=== PATIENT | female | born 1950 | race African-American/Black ===

== ENCOUNTER 2016-11-25 14:42 | Inpatient (IN) | payer OTHER ==
[2016-11-25] MEDS ORDERED: SODIUM CHLORIDE 1,000 ML IV ONE (15:19)
[2016-11-25 15:29] LABS: BASOPHIL 0.6 % (0-2.0); EOSINOPHIL 0.2 % (0-4.5); MCH 22.4 pg (25.7-33.7); MCHC 31.8 g/dl (32.0-36.0); MEAN CELL VOLUME 70.3 fl (80-96); MEAN PLT VOLUME 9.4 fl (7.5-11.1); NEUTROPHILS 61.9 % (42.8-82.8); PLATELET COUNT 337 K/MM3 (134-434); RDW 14.5 % (11.6-15.6); WHITE BLOOD COUNT 8.5 K/mm3 (4.0-10.0)
--- NOTE | 2016-11-25 15:30 | PDOC ---
History of Present Illness - General Chief Complaint: Blood Sugar Problem Stated Complaint: BLOOD SUGAR PROBLEM Time Seen by Provider: 11/25/16 14:56 Past History - Past History Allergies/Adverse Reactions: Allergies No Known Allergies Allergy (Verified 11/25/16 14:57) Home Medications: Ambulatory Orders Metformin HCl 500 mg PO DAILY #14 tablet 03/30/16 Nitrofurantoin Monohyd/M-Cryst [Macrobid] 100 mg PO BID #14 capsule 03/30/16 - Social History Smoking Status: Never smoked *Physical Exam - Vital Signs Last Vital Signs Temp Pulse Resp BP Pulse Ox 97.9 F 110 H 18 152/87 99 11/25/16 14:56 11/25/16 14:56 11/25/16 14:56 11/25/16 14:56 11/25/16 14:56 ED Treatment Course - LABORATORY CBC & Chemistry Diagram: 11/25/16 15:00 11/25/16 15:00 - RADIOLOGY Radiology Studies Ordered: Category Date Time Status CHEST X-RAY PORTABLE* [RAD] Stat Radiology 11/25/16 15:01 Taken Medical Decision Making - Medical Decision Making 11/25/16 15:30 66y F hx of NIDDM
--- NOTE | 2016-11-25 15:31 | PDOC ---
History of Present Illness - General History Source: Patient, Family Exam Limitations: Language Barrier - History of Present Illness Initial Comments: 11/25/16 18:05 The patient is a 66 year old female, with a significant past medical history of diabetes, who presents to the emergency department complaining of weakness for approximately 5 days. As per son the patient has not checked her blood sugar since late September. Yesterday when his checked the patients sugar, her blood sugar was 431. She currently feels as if her mouth were sweet and her throat is burning". Son reports increased urinary frequency, but denies urgency , hematuria, or dysuria. The patient is currently complaining of abdominal discomfort, which she describes as an emptiness in her stomach. She reports she has decreased appetite and her last meal was a banana for breakfast. She reports 1 emetic episode earlier, but denies diarrhea or constipation. The patient denies any chest pain, shortness of breath, diaphoresis, or palpitations. The patient reports headache several days ago, but denies any fever, chills, cough, or dizziness. Patient denies any recent travel or sick contacts. Allergies: None reported. Past Surgical History: None reported. Social History: Non-smoker. Denies alcohol or drug use. <Yann Ureña - Last Filed: 11/25/16 18:58> - General History Source: Patient Exam Limitations: No Limitations <Prem Colón - Last Filed: 11/26/16 09:40> - General Chief Complaint: Blood Sugar Problem Stated Complaint: BLOOD SUGAR PROBLEM Time Seen by Provider: 11/25/16 14:56 Past History <Yann Ureña - Last Filed: 11/25/16 18:58> - Past Medical History Cardiac Disorders: Yes Diabetes: Yes HTN: Yes - Psycho/Social/Smoking Cessation Hx Anxiety: No Suicidal Ideation: No Smoking History: Never smoked Information on smoking cessation initiated: No Hx Alcohol Use: No Drug/Substance Use Hx: No Substance Use Type: None <Prem Colón - Last Filed: 11/26/16 09:40> - Past Medical History Allergies/Adverse Reactions: Allergies Allergy/AdvReac Type Severity Reaction Status Date / Time No Known Allergies Allergy Verified 11/25/16 14:57 Home Medications: Ambulatory Orders Metformin HCl 500 mg PO DAILY #14 tablet 03/30/16 Review of Systems - Review of Systems Able to Perform ROS?: Yes Comments:: 11/25/16 18:06 CONSTITUTIONAL: +Loss of Appetite, +Generalized Weakness. No reported: Fever, Chills, Diaphoresis, Malaise HEENT: +Burning sensation in throat. No reported: Rhinorrhea, Nasal Congestion, Throat Swelling, Difficulty Swallowing, Mouth Swelling, Ear Pain, Eye Pain, Visual Changes CARDIOVASCULAR: No reported: Chest Pain, Syncope, Palpitations, Irregular Heart Rate, Lightheadedness, Peripheral Edema RESPIRATORY: No reported: Cough, Shortness of Breath, SOB with Exertion, Orthopnea, Wheezing , Stridor, Hemoptysis GASTROINTESTINAL: +Abdominal discomfort, +Vomiting. No reported: Abdominal Distension, Diarrhea, Constipation, Melena, Hematochezia GENITOURINARY: +Frequency. No reported: Dysuria, Urgency, Hesitancy, Flank Pain, Genital Pain MUSCULOSKELETAL: No reported: Myalgia, Arthralgia, Joint Swelling, Back pain, Neck Pain SKIN: No reported: Rash, Itching, Pallor HEMEATOLOGIC/IMMUNOLOGIC: No reported: Easy Bleeding, Easy Bruising, Lymphadenopathy, Frequent infections ENDOCRINE: No reported: Unexplained Weight Gain, Unexplained Weight Loss, Heat Intolerance , Cold Intolerance NEUROLOGIC: +Headache. No reported: Focal Weakness, Paresthesias, Vertigo, Lightheadedness, Unsteady Gait, Seizure, Mental Status Changes, Incontinence PSYCHIATRIC: No reported: Anxiety, Depression <Ureña,Giomilsy - Last Filed: 11/25/16 18:58> *Physical Exam - Vital Signs Last Vital Signs Temp Pulse Resp BP Pulse Ox 97.9 F 110 H 18 152/87 99 11/25/16 14:56 11/25/16 14:56 11/25/16 14:56 11/25/16 14:56 11/25/16 14:56 - Physical Exam Comments: 11/25/16 18:06 GENERAL: +Obese. The patient is awake, alert, and fully oriented, Nontoxic - in no acute distress. HEAD: Normocephalic, atraumatic. EYES: extraocular movements intact, sclera anicteric, conjunctiva clear. ENT: +Mildly dry mucous membranes. Normal voice. NECK: Normal range of motion, supple LUNGS: Breath sounds equal, clear to auscultation bilaterally. No wheezes, no rhonchi, no rales. HEART: Regular rate and rhythm, without murmur, rub or gallop. ABDOMEN: Soft, nontender, normoactive bowel sounds. No guarding, no rebound.No CVA tenderness EXTREMITIES: Normal range of motion, no edema. No clubbing or cyanosis. No cords, erythema, or tenderness. NEUROLOGICAL: No facial asymmetry, Normal speech. PSYCH: Normal mood, normal affect. SKIN: Warm, Dry, normal turgor. <Yann Ureña - Last Filed: 11/25/16 18:58> - Vital Signs Last Vital Signs Temp Pulse Resp BP Pulse Ox 97.9 F 110 H 18 152/87 99 11/25/16 14:56 11/25/16 14:56 11/25/16 14:56 11/25/16 14:56 11/25/16 14:56 <Prem Colón - Last Filed: 11/26/16 09:40> Heart Score/ECG Review - ECG Impressions Comment:: 11/25/16 15:31 Twelve-lead EKG was performed and reviewed by me. There is normal sinus rhythm with a rate of 107 The axis is normal. The intervals are normal. There is normal R wave progression There are no ST or T wave abnormalities. Impression: sinus tachycardia <Prem Colón - Last Filed: 11/26/16 09:40> ED Treatment Course - LABORATORY CBC & Chemistry Diagram: 11/25/16 15:00 11/25/16 16:26 - ADDITIONAL ORDERS Additional order review: Laboratory Results 11/25/16 11/25/16 15:27 15:00 VBG pH 7.23 L* POC VBG pCO2 21.1 L POC VBG pO2 67.1 H Mixed VBG HCO3 8.5 L* Sodium Cancelled Potassium Cancelled Chloride Cancelled Carbon Dioxide Cancelled Anion Gap Cancelled BUN Cancelled Creatinine Cancelled Creat Clearance w eGFR Cancelled Random Glucose Cancelled Calcium Cancelled Total Bilirubin Cancelled AST Cancelled ALT Cancelled Alkaline Phosphatase Cancelled Creatine Kinase Cancelled Troponin I Cancelled Total Protein Cancelled Albumin Cancelled 11/25/16 15:00 RBC 6.71 H MCV 70.3 L MCHC 31.8 L RDW 14.5 MPV 9.4 Neutrophils % 61.9 D Lymphocytes % 30.7 D Monocytes % 6.6 Eosinophils % 0.2 Basophils % 0.6 - RADIOLOGY Radiograph Interpretation: 11/25/16 16:31 EXAM: CXR INTERPRETED BY: Dr. Ramírez REVIEWED BY: Dr. Colón IMPRESSION: There is a borderline heart size allowing for technique. There is possible tracheal narrowing in the thoracic inlet and this can be evaluated with a noncontrast CT scan of the chest. - Medications Given in the ED: ED Medications Discontinued Medications Generic Name Dose Route Start Last Admin Trade Name Freq PRN Reason Stop Dose Admin Sodium Chloride 1,000 mls @ 1,000 mls/hr 11/25/16 15:19 11/25/16 15:54 Normal Saline - IV 11/25/16 16:18 1,000 mls/hr .Q1H ONE Administration <Yann Ureña - Last Filed: 11/25/16 18:58> - LABORATORY CBC & Chemistry Diagram: 11/26/16 07:30 11/26/16 07:30 - RADIOLOGY Radiology Studies Ordered: Category Date Time Status CHEST X-RAY PORTABLE* [RAD] Stat Radiology 11/25/16 15:01 Taken <Prem Colón - Last Filed: 11/26/16 09:40> Medical Decision Making - Medical Decision Making 11/25/16 18:58 Pt. approve for ICU by Dr. Hess at 18:58. <Yann Ureña - Last Filed: 11/25/16 18:58> - Medical Decision Making 11/25/16 15:32 66y F hx of dm presents with feeling generally weak, epigastric 'emptiness', and hyperglycemia (was in the 400s) without any associated sob, cp, laird, abd pain, fever/chills, diarrhea. on exam pt in no distress, vitals noted for mild tachycardia, with mild dry mucus membranes. suspect hyperglycemia, low suspicion of acs w/o chest pain/sob/laird - will obtain bloo work to r/o dka, anemia, metabolic derangement, lipase, trops will obtain ekg will give fluids will erassess A portion of this note was documented by scribe services under my direction. I have reviewed the details of the note, within reason, and agree with the documentation with the following case summary and management plan written by me 11/25/16 18:28 pts labs reviewed c/w dka +ag, +urine ketones, +hyperglycemia delay in diagnosis due to hemolyzed labs and confusion with the lab will start pt on insulin gtt after rechecking her bgm will admit to the hospitalist team will admit to ICU as pt is in dka and will need insulin gtt. pts cxr reviweed - will need further workup of possible narrowing of thoracic inlet. 11/25/16 18:[address] ochoa agreed with admission to icu Case discussed in detail with admitting physician including history, physical exam and ancillary studies. Admitting physician has assumed care for the patient, will follow all pending diagnostics and will complete the evaluation and treatment. CRITICAL CARE DOCUMENTATION: I spent ~35 minutes of Critical Care time, excluding separately billable procedures, involving high complexity decision making to assess, manipulate and support vital system function(s) to treat single or multiple vital organ system failure and/or to prevent further life threatening deterioration of the patient' s condition. <Prem Colón - Last Filed: 11/26/16 09:40> *DC/Admit/Observation/Transfer - Attestations Scribe Attestion: 11/25/16 16:31 Documentation prepared by Yann Ureña, acting as certified medical dosimetrist for Prem Colón MD. <Yann Ureña - Last Filed: 11/25/16 18:58> - Discharge Dispostion Admit: Yes <Prem Colón - Last Filed: 11/26/16 09:40> Diagnosis at time of Disposition: DKA (diabetic ketoacidosis) Qualifiers: Diabetes mellitus type: type 2 Diabetes mellitus complication detail: without coma Qualified Code(s): E13.10 - Other specified diabetes mellitus with ketoacidosis without coma
[2016-11-25 15:32] LABS: VENOUS BLOOD GAS HCO3 8.5 meq/L (19-25); VENOUS PH 7.23 (7.32-7.42)
[2016-11-25 16:31] LABS: URINE APPEARANCE CLEAR; URINE BILIRUBIN NEGATIVE (NEGATIVE); URINE BLOOD NEGATIVE (NEGATIVE); URINE COLOR STRAW; URINE GLUCOSE (UA) 3+ (NEGATIVE); URINE KETONE 2+ (NEGATIVE); URINE LEUK ESTERASE NEGATIVE (NEGATIVE); URINE NITRITE NEGATIVE (NEGATIVE); URINE PROTEIN NEGATIVE (NEGATIVE); URINE UROBILINOGEN NEGATIVE E.U./dl (0.2-1.0)
[2016-11-25 17:31] LABS: TROPONIN I < 0.02 ng/ml (0.00-0.05)
[2016-11-25 17:52] LABS: ALBUMIN 3.9 g/dl (3.4-5.0); BILIRUBIN,TOTAL 0.7 mg/dL (0.2-1.0); CALCIUM 8.8 mg/dL (8.5-10.1); CREATININE 1.1 mg/dL (0.55-1.02); TOT PROT 7.7 g/dl (6.4-8.2)
[2016-11-25] MEDS ORDERED: MAG HYDROX/AL HYDROX/SIMETH 355 ML ORAL.SUSP PO ONE (18:28)
[2016-11-25] MEDS ORDERED: FAMOTIDINE 20 MG/50 ML IVPB 20 MG in PREMIX 50 IVPB ONE (18:28)
[2016-11-25] MEDS ORDERED: INSULIN REGULAR 100 UNITS in SODIUM CHLORIDE 99 ML IVPB SCH ×2 (18:30→23:27)
[2016-11-25] MEDS ORDERED: INSULIN REGULAR HUMAN 100 UNITS/ML *VIAL IVPUSH ONE (18:37)
[2016-11-25] MEDS ORDERED: INSULIN REGULAR HUMAN 100 UNITS/ML *VIAL ONE (18:38)
[2016-11-25] MEDS ORDERED: MAG HYDROX/AL HYDROX/SIMETH 30 ML UNIT-DOSE CUP ONE (18:42)
[2016-11-25] MEDS ORDERED: FAMOTIDINE 20 MG/50 ML IVPB 50 ML IVPB ONE (18:42)
--- NOTE | 2016-11-25 19:43 | PN ---
<Britta Rios - Last Filed: 11/25/16 19:42> Teaching Attending Note Name of Resident: Alisson Payan <Mayco Coppola - Last Filed: 11/26/16 02:45> Teaching Attending Note ATTENDING PHYSICIAN STATEMENT I saw and evaluated the patient. I reviewed the resident's note and discussed the case with the resident. I agree with the resident's findings and plan as documented. SUBJECTIVE: The patient is a 66 year old female, Creole-speaking, accompanied by sons ( acted as translators), who has been non-compliant with diabetes medications for one week and presented for further evaluation of chest pain for 5 days. The patient described her chest pain as burning, non radiating, and located in sub sternum. The patient reported associated dry mouth, throat burning, intermittent headache, nocturia, polyuria, and polydipsia. The patient denied any recent weight loss. Past Medical History: Diabetes (dx last 2015) OBJECTIVE: Vital Signs: Last Vital Signs Temp Pulse Resp BP Pulse Ox 97.6 F 106 H 22 138/84 99 11/25/16 20:07 11/25/16 20:07 11/25/16 20:07 11/25/16 20:07 11/25/16 20:07 Physical Exam: GENERAL: Awake, alert, and fully oriented, in no acute distress HEENT: Atraumatic. PERRLA, EOMI. Moist mucosa. No JVD LUNGS: No distress, speaks full sentences, clear to auscultation bilaterally HEART: Regular rate and rhythm, normal S1 and S2, no murmurs, rubs or gallops, peripheral pulses normal and equal bilaterally. ABDOMEN: (+) Hypoactive bowel sound. soft, nontender. No guarding, no rebound. No masses EXTREMITIES: Normal inspection, Normal range of motion, no edema. No clubbing or cyanosis. NEUROLOGICAL: Cranial nerves II through XII grossly intact. Normal speech, normal gait, no focal sensorimotor deficits SKIN: Warm, Dry, normal turgor, no rashes or lesions noted. Labs: CBCD WBC 8.5 K/mm3 (4.0-10.0) 11/25/16 15:00 RBC 6.71 M/mm3 (3.60-5.2) H 11/25/16 15:00 Hgb 15.0 GM/dL (10.7-15.3) D 11/25/16 15:00 Hct 47.2 % (32.4-45.2) H 11/25/16 15:00 MCV 70.3 fl (80-96) L 11/25/16 15:00 MCHC 31.8 g/dl (32.0-36.0) L 11/25/16 15:00 RDW 14.5 % (11.6-15.6) 11/25/16 15:00 Plt Count 337 K/MM3 (134-434) 11/25/16 15:00 MPV 9.4 fl (7.5-11.1) 11/25/16 15:00 CMP Sodium 136 mmol/L (136-145) 11/25/16 16:26 Potassium 4.4 mmol/L (3.5-5.1) 11/25/16 16:26 Chloride 105 mmol/L (98-107) 11/25/16 16:26 Carbon Dioxide 6 mmol/L (21-32) L D 11/25/16 16:26 Anion Gap 25 (8-16) H 11/25/16 16:26 BUN 13 mg/dL (7-18) 11/25/16 16:26 Creatinine 1.1 mg/dL (0.55-1.02) H D 11/25/16 16:26 Creat Clearance w eGFR 49.69 (>60) 11/25/16 16:26 Calcium 8.8 mg/dL (8.5-10.1) 11/25/16 16:26 Total Bilirubin 0.7 mg/dL (0.2-1.0) 11/25/16 16:26 AST 16 U/L (15-37) D 11/25/16 16:26 ALT 23 U/L (12-78) D 11/25/16 16:26 Alkaline Phosphatase 84 U/L (45-117) 11/25/16 16:26 Total Protein 7.7 g/dl (6.4-8.2) 11/25/16 16:26 Albumin 3.9 g/dl (3.4-5.0) 11/25/16 16:26 Imaging: Exam: Chest X-Ray Clinical history: Shortness of breath. Comparison: None. Discussion: A portable AP sitting view of the chest lordosis and rotation is supplied. There is a borderline heart size. There is unfolding of the great vessels. This This possible superior mediastinal widening, bilateral but greater on the left with narrowing of the trachea. This is not ideally seen on this single view. One can obtain a noncontrast CT scan of the chest for further delineation. Impression: There is a borderline heart size allowing for technique. There is possible tracheal narrowing in the thoracic inlet and this can be evaluated with a noncontrast CT scan of the chest. Reported By: Acosta Ramírez MD ASSESSMENT AND PLAN : Diabetic Ketoacidosis. -IVF -IV Insulin drip -IV NS 100cc/hr -Finger sticks QH -BMP every Q4H -Bicarb one time -Metformin 10mg PRN -Protonix -If glucose goes below 250 add D5 -Repeat Troponins -NPO Gastritis -IV Pantoprazole 40mg BID Questionable CKD -IVF -Avoid Nephrotoxins R/o Hyperlipidemia -Lipid panel in AM Admit to ICU. Documentation prepared by Mayco Coppola, acting as medical authorization specialist for Dr. Britta Rios MD.
--- NOTE | 2016-11-25 20:05 | HP ---
CHIEF COMPLAINT: Weakness PCP: Dr. Deng ([facility]) HISTORY OF PRESENT ILLNESS: Patient is [id number] who speaks creole only, accompanied by her son, presented to the ED with the chief complaints of weakness since a week. As per the son, she has been feeling tired since a week, hasn't been eating well. Complaints of burning sensation in her throat and states that her mouth and throat are dry most of the time and feels sweet. Also mentions she has headache on/off but denies dizziness, vertigo, tingling, numbness, blurring of vision, loss of consciousness. Son says that patient has had epigastric pain since a week, non radiating, burning in sensation and " feels like there is a hole". Since her illness, patient hasn't been taking Metformin since a week. Had nausea and one episode of non projectile, non bilious vomiting today. Patient was diagnosed with Diabetes Mellitus last year and was on Metformin 500mg Daily. Patient hasn't been checking her blood sugar since weeks, checked last night and it was 431; doesn't know the last HbA1c. She visited her primary doctor last August. Has no other past medical history. Patient came from [facility] one year ago and was unaware that she was diabetic. Patient is on diabetic diet. Denies sob, cough, palpitations, abdominal pain. Hasn't had bowel movement since 2 days. Also complaints of polyuria, nocturia but denies dysuria, urgency or incontinence. ER course was notable for: (1) Afebrile, tachycardic 108; RBS-437; AG-25; Na-136; K-4.4, UA +++ glucose; ++ ketones (2) EKG- Sinus Tachycardia (3) IV NS-1 L; Mylanta, Famotidine, Insulin drip started @ 7U Recent Travel: None PAST MEDICAL HISTORY: Diabetes Mellitus (diagnosed 1 year ago) PAST SURGICAL HISTORY: None Social History: Smoking: Denies Alcohol: Denies Drugs: Denies Family History: Unknown Allergies No Known Allergies Allergy (Verified 11/25/16 14:57) HOME MEDICATIONS: Home Medications Medication Instructions Recorded Metformin HCl 500 mg PO DAILY #14 tablet 03/30/16 REVIEW OF SYSTEMS CONSTITUTIONAL: Present: generalized weakness Absent: fever, chills, diaphoresis, malaise, loss of appetite, weight change HEENT: Present: Burning sensation in throat, sweet mouth Absent: rhinorrhea, nasal congestion, throat swelling, difficulty swallowing, mouth swelling, ear pain, eye pain, visual changes CARDIOVASCULAR: Absent: chest pain, syncope, palpitations, irregular heart rate, lightheadedness , peripheral edema RESPIRATORY: Absent: cough, shortness of breath, dyspnea with exertion, orthopnea, wheezing, stridor, hemoptysis GASTROINTESTINAL: Present: Epigastric pain Absent: abdominal pain, abdominal distension, nausea, vomiting, diarrhea, constipation, melena, hematochezia GENITOURINARY: Absent: dysuria, frequency, urgency, hesitancy, hematuria, flank pain, genital pain MUSCULOSKELETAL: Absent: myalgia, arthralgia, joint swelling, back pain, neck pain SKIN: Absent: rash, itching, pallor HEMATOLOGIC/IMMUNOLOGIC: Absent: easy bleeding, easy bruising, lymphadenopathy, frequent infections ENDOCRINE: Absent: unexplained weight gain, unexplained weight loss, heat intolerance, cold intolerance NEUROLOGIC: Absent: headache, focal weakness or paresthesias, dizziness, unsteady gait, seizure, mental status changes, bladder or bowel incontinence PSYCHIATRIC: Absent: anxiety, depression, suicidal or homicidal ideation, hallucinations. PHYSICAL EXAMINATION Vital Signs - 24 hr 11/25/16 18:50 Pulse Rate [ 108 H Apical] Respiratory 18 Rate Blood Pressure 134/95 [Left Arm] GENERAL: Moderately obese, Awake, alert, and fully oriented, in no acute distress. HEAD: Normal with no signs of trauma. EYES: EOM intact, no pallor or icterus. EARS, NOSE, THROAT: Ears normal. Dry mucous membranes. NECK:Supple. LUNGS: Breath sounds equal, clear to auscultation bilaterally. No wheezes, and no crackles. No accessory muscle use. HEART: Regular rate and rhythm, normal S1 and S2 without murmur, rub or gallop. ABDOMEN: Soft, tenderness on palpation over the epigastric area, not distended, normoactive bowel sounds, no guarding, no rebound, no masses. No hepatomegaly or splenomegaly. MUSCULOSKELETAL: Normal range of motion at all joints. No bony deformities or tenderness. No CVA tenderness. UPPER EXTREMITIES: 2+ pulses, warm, well-perfused. No cyanosis. No clubbing. No peripheral edema. LOWER EXTREMITIES: 2+ pulses, warm, well-perfused. No calf tenderness. No peripheral edema. NEUROLOGICAL: Cranial nerves II-XII intact. Normal speech. Normal gait. PSYCHIATRIC: Cooperative. Good eye contact. Appropriate mood and affect. SKIN: Warm, dry, normal turgor, no rashes or lesions noted, normal capillary refill. Abnormal Lab Results 11/25/16 11/25/16 11/25/16 15:00 15:00 15:27 RBC 6.71 H Hct 47.2 H MCV 70.3 L MCHC 31.8 L VBG pH 7.23 L* POC VBG pCO2 21.1 L POC VBG pO2 67.1 H Mixed VBG HCO3 8.5 L* Sodium Carbon Dioxide Anion Gap Creatinine Random Glucose Hemoglobin A1c % Urine Glucose (UA) Urine Ketones Acetone, Qual Positive moderate 2+ H 11/25/16 11/25/16 11/25/16 15:27 16:26 21:00 RBC Hct MCV MCHC VBG pH POC VBG pCO2 POC VBG pO2 Mixed VBG HCO3 Sodium Carbon Dioxide 6 L D Anion Gap 25 H Creatinine 1.1 H D Random Glucose 437 H* D Hemoglobin A1c % 13.4 H D Urine Glucose (UA) 3+ H Urine Ketones 2+ H Acetone, Qual 11/25/16 11/26/16 21:00 03:30 RBC Hct MCV MCHC VBG pH POC VBG pCO2 POC VBG pO2 Mixed VBG HCO3 Sodium 133 L Carbon Dioxide 9 L D 18 L D Anion Gap 21 H Creatinine 1.1 H Random Glucose 351 H* 203 H D Hemoglobin A1c % Urine Glucose (UA) Urine Ketones Acetone, Qual ASSESSMENT/PLAN: Patient is [id number] who speaks creole only, accompanied by her son, with past medical history of Diabetes Mellitus presented to the ED with the chief complaints of weakness since a week. # Diabetic Ketoacidosis. Patient presented with weakness, dry mouth, epigastric pain, nausea, one episode of vomiting, sweeth mouth On arrival, Afebrile, tachycardic 108; RBS-437; AG-25; Na-136; K-4.4, UA +++ glucose; ++ketones VBG- pH-7.23 EKG- Sinus Tachycardia In the ED, patient received IV NS-1 L; Mylanta, Famotidine, Insulin drip started @ 7U Admitted in the ICU IV Insulin drip continued with IV NS @ 100mls/hr Finger stick glucose hourly and BMP every 4 hourly D5 with IV KCL 40mEq with IV bicarb 3amps to be given over 12 hours Metoclopromide 10mg PRN Will overlap with regular insulin once the gap closes Will keep her NPO now but if she can tolerate will change to diabetic diet after the AG closes. HbA1c 13.4 Diabetic diet and exercise discussed in depth Would consider referring to an Type Disk Quality Control Supervisor upon discharge # Possible gastritis Symptoms consistent with gastritis IV Pantoprazole 40mg BID # Acute Kidney Injury with questionable CKD Creatinine 1.1 (baseline 0.8 in 2016) GFR- 49 (baseline > 60 in 2016) IV Hydration Avoid Nephrotoxic drugs # Would like to rule out Hyperlipidemia Lipid panels ordered for am # FEN IV NS @ 100mls/hr Electrolytes to be repeated every 4 hrly NPO for now # Prophylaxis For DVT- Heparin 5000 U sq For GI- On protonix 40mg BID # Code Status: Full Code # Dispo: Admitted in ICU. Duration of stay unknown. Illness, Investigation and Plan of care explained to the patient and her son. They verbalized understanding. Case seen and discussed with Dr. Rois. Visit type - Emergency Visit Emergency Visit: Yes ED Registration Date: 11/25/16 Care time: The patient presented to the Emergency Department on the above date and was hospitalized for further evaluation of their emergent condition. - New Patient This patient is new to me today: Yes Date on this admission: 11/25/16 - Critical Care Critical Care patient: No
[2016-11-25] MEDS ORDERED: METOCLOPRAMIDE HCL INJECTION 10 MG/2 ML VIAL IVPB PRN (20:11)
[2016-11-25] MEDS ORDERED: [UNRECOGNIZED DRUG - OTHER] IV SCH (20:15)
[2016-11-25] MEDS ORDERED: DEXTROSE IV SCH (20:15)
[2016-11-25] MEDS ORDERED: WATER IV SCH (20:15)
[2016-11-25] MEDS ORDERED: SODIUM BICARBONATE IV SCH ×2 (20:15→20:45)
[2016-11-25 20:22] VITALS: BMI 30.8
--- NOTE | 2016-11-25 20:35 | CONSULT ---
Consult Consult Specialty:: PULM/CCM Referred by:: New Reason for Consultation:: Diabetic Ketoacidosis - History of Present Illness Chief Complaint: nausea, anorexia History of Present Illness: Ms Palma is a 66 year old woman, with past medical history only notable for NIDDM on metformin for about 1 year, no previous admission for DKA, who presented to emergency department today with complaint of weakness for approximately 5 days, poor PO intake 2/2 anorexia, and nausea. Per her son (pt non divehi speaking) the patient has not checked her blood sugar since late September. On 11/24 daughter in law checked the patients bgl which was 431. Per son pt relates feeling mouth were sweet and her throat is burning". Also reports increased urinary frequency, but denies urgency, hematuria, or dysuria. Had 1 NBNB emesis, only had banana to eat this am. Relates complaints c/w gastitis/gastroparesis. The patient denies substernal chest pain, shortness of breath, diaphoresis, or palpitations. The patient reports headache several days ago, but denies any fever, chills, cough, or dizziness. No other localizing symtoms. Patient denies any recent travel or sick contacts. - History Source History Provided By: Family Member Limitations to Obtaining History: Language Barrier - Past Medical History ...: No Endocrine: Yes: Diabetes Mellitus - Past Surgical History Past Surgical History: Yes: None - Alcohol/Substance Use Hx Alcohol Use: No History of Substance Use: reports: None - Smoking History Smoking history: Never smoked - Social History Usual Living Arrangement: With Child ADL: Independent Place of : Other ([facility]) History of Recent Travel: No Home Medications - Allergies Allergies/Adverse Reactions: Allergies Allergy/AdvReac Type Severity Reaction Status Date / Time No Known Allergies Allergy Verified 11/25/16 14:57 - Home Medications Home Medications: Ambulatory Orders Metformin HCl 500 mg PO DAILY #14 tablet 03/30/16 Family Disease History - Family Disease History Family History: Unable to Obtain ([facility]) Review of Systems Unable to obtain ROS, reason: language barrier - Review of Systems Constitutional: reports: No Symptoms Eyes: reports: No Symptoms HENT: reports: No Symptoms Neck: reports: No Symptoms Cardiovascular: reports: No Symptoms Respiratory: reports: No Symptoms Gastrointestinal: reports: Indigestion Genitourinary: reports: Frequency. denies: Burning, Discharge, Dysuria, Incontinence Breasts: reports: No Symptoms Reported Musculoskeletal: reports: No Symptoms Integumentary: reports: No Symptoms Neurological: reports: No Symptoms Endocrine: reports: No Symptoms Hematology/Lymphatic: reports: No Symptoms Psychiatric: reports: No Symptoms Physical Exam Vital Signs: Vital Signs Temperature 97.6 F 11/25/16 20:07 Pulse Rate 106 H 11/25/16 20:07 Respiratory Rate 22 11/25/16 20:07 Blood Pressure 138/84 11/25/16 20:07 O2 Sat by Pulse Oximetry (%) 99 11/25/16 20:07 Constitutional: Yes: Well Nourished, No Distress, Calm Eyes: Yes: Conjunctiva Clear, EOM Intact HENT: Yes: Atraumatic, Normocephalic Neck: Yes: Supple. No: Thyromegaly Cardiovascular: Yes: Regular Rate and Rhythm, S1, S2 Respiratory: Yes: Regular, CTA Bilaterally. No: Accessory Muscle Use Gastrointestinal: Yes: Normal Bowel Sounds, Soft ...Rectal Exam: Yes: Deferred Renal/: No: Polyuria, Urethral Discharge Breast(s): Yes: WNL Musculoskeletal: Yes: WNL Extremities: Yes: WNL Edema: No Peripheral Pulses WNL: Yes Integumentary: Yes: WNL Wound/Incision: Yes: Clean/Dry Neurological: Yes: WNL, Alert, Oriented, Cran Nerves II-XII Intact ...Motor Strength: WNL Psychiatric: Yes: WNL, Alert, Oriented Labs: CBC, BMP 11/25/16 15:00 CMP Sodium 136 mmol/L (136-145) 11/25/16 16:26 Potassium 4.4 mmol/L (3.5-5.1) 11/25/16 16:26 Chloride 105 mmol/L (98-107) 11/25/16 16:26 Carbon Dioxide 6 mmol/L (21-32) L D 11/25/16 16:26 Anion Gap 25 (8-16) H 11/25/16 16:26 BUN 13 mg/dL (7-18) 11/25/16 16:26 Creatinine 1.1 mg/dL (0.55-1.02) H D 11/25/16 16:26 Creat Clearance w eGFR 49.69 (>60) 11/25/16 16:26 Random Glucose 437 mg/dL (74-106) H* D 11/25/16 16:26 Calcium 8.8 mg/dL (8.5-10.1) 11/25/16 16:26 Total Bilirubin 0.7 mg/dL (0.2-1.0) 11/25/16 16:26 AST 16 U/L (15-37) D 11/25/16 16:26 ALT 23 U/L (12-78) D 11/25/16 16:26 Alkaline Phosphatase 84 U/L (45-117) 11/25/16 16:26 Creatine Kinase 27 IU/L (26-192) 11/25/16 16:46 Troponin I < 0.02 ng/ml (0.00-0.05) 11/25/16 16:46 Total Protein 7.7 g/dl (6.4-8.2) 11/25/16 16:26 Albumin 3.9 g/dl (3.4-5.0) 11/25/16 16:26 Lipase 303 U/L (73-393) 11/25/16 15:44 Imaging - Results X-ray: Report Reviewed, Image Reviewed (Clear, lungs normal cardiac silhoette) EKG: Image Reviewed (NSR, normal axis, normal intervals, no ischemic changes) Problem List - Problems (1) DKA (diabetic ketoacidosis) Code(s): E13.10 - OTH DIABETES MELLITUS WITH KETOACIDOSIS WITHOUT COMA Qualifiers: Diabetes mellitus type: type 2 Diabetes mellitus complication detail: without coma Qualified Code(s): E13.10 - Other specified diabetes mellitus with ketoacidosis without coma Assessment/Plan A/ 66 y/o woman with NIDDM p/w diabetic ketoacidosis in setting of medicine non compliance. She has a clear cxr and clean UA. She has no localizing complaints to indicate infectious etiology. P/ -Insulin gtt, cont until BGL < 250 as per protocol -monitor AG, once closed attempt oral intake and transitoin -hco3 and K repletion with volume -cont pepcid for likely GERD -may have some gastroparesis, if unable to take PO in am would start reglan -SQH for DVT prophy -OOB in am -montior in ICU until GAP closed Sidney Dickson ACNP [id number]
[2016-11-25] MEDS ORDERED: [UNRECOGNIZED DRUG - OTHER] IV SCH (20:45)
[2016-11-25] MEDS ORDERED: POTASSIUM CHLORIDE IV SCH (20:45)
[2016-11-25] MEDS: MUPIROCIN 2% TOPICAL OINTMENT FOR DECOLONIZATION NS SCH (21:26)
[2016-11-25] MEDS: HEPARIN NA (PORCINE) 5,000 UNITS/ML 1ML VIAL SQ SCH (21:27)
[2016-11-25] MEDS: CHLORHEXIDINE GLUCONATE 4% CLEANSER FOR DECOLONIZATION TP SCH (21:27)
[2016-11-25] MEDS: PANTOPRAZOLE SODIUM 100 ML IVPB SCH (21:28)
[2016-11-25 21:32] LABS: CALCIUM 8.9 mg/dL (8.5-10.1); CREATININE 1.1 mg/dL (0.55-1.02)
[2016-11-26 04:15] LABS: CALCIUM 8.7 mg/dL (8.5-10.1)
[2016-11-26] MEDS ORDERED: WATER IV SCH (05:15)
[2016-11-26] MEDS ORDERED: DEXTROSE 5% IV SCH (05:15)
[2016-11-26] MEDS ORDERED: INSULIN REGULAR IV SCH (05:15)
[2016-11-26] MEDS ORDERED: INSULIN DETEMIR 100 UNITS/ML MDV SQ ONE ×2 (05:42→16:06)
[2016-11-26] MEDS: HEPARIN NA (PORCINE) 5,000 UNITS/ML 1ML VIAL SQ SCH ×3 (06:00→21:53)
[2016-11-26] MEDS ORDERED: PNEUMOC 13-VAL CONJ-DIP CRM/PF 0.5 ML DISP.SYRIN IM ONE (07:00)
--- NOTE | 2016-11-26 08:01 | PN ---
Progress Note (short form) - Note Progress Note: c/o MARINELLI that started this morning. has not eaten much and does not have an appetite. denies Cp, SOB,fever, chills, N/V/C/D Current Medications Generic Name Dose Route Start Last Admin Trade Name Freq PRN Reason Stop Dose Admin Chlorhexidine Gluconate 1 applic 11/25/16 22:00 11/25/16 21:27 Hibiclens For Decolonization - TP 1 applic HS NAMRATA Administration Heparin Sodium (Porcine) 5,000 unit 11/25/16 22:00 11/26/16 06:00 Heparin - SQ 5,000 unit TID NAMRATA Administration Pantoprazole Sodium 100 mls @ 200 mls/hr 11/25/16 22:00 11/25/16 21:28 Protonix 40mg Ivpb (Pre-Docked) IVPB 200 mls/hr BID NAMRATA Administration Sodium Bicarbonate 150 meq/ 1,170 mls @ 83 mls/hr 11/25/16 20:45 11/25/16 21:27 Potassium Chloride 40 meq/ IV 83 mls/hr Dextrose Q14H NAMRATA Administration Insulin Human Regular 100 100 mls @ 5 mls/hr 11/25/16 23:27 11/25/16 23:25 units/ Sodium Chloride IVPB 5 mls/hr TITR NAMRATA Administration Protocol 5 UNITS/HR Metoclopramide HCl 10 mg 11/25/16 20:11 Reglan Injection - IVPB Q6H PRN NAUSEA AND/OR VOMITING Mupirocin 1 applic 11/25/16 22:00 11/25/16 21:26 Bactroban Ointment (For Decolonization) - NS 11/30/16 21:59 1 applic BID NAMRATA Administration Last Vital Signs Temp Pulse Resp BP Pulse Ox 98.5 F 98 H 22 108/83 99 11/26/16 06:10 11/26/16 06:10 11/26/16 06:10 11/26/16 06:10 11/25/16 20:07 General NAD CV S1 S2 RRR no murmur/rub/gallop Lungs CTA B/L No wheezing/rales/rhonchi Abdomen soft NT/ND Extremities no pedal edema CBCD WBC 8.5 K/mm3 (4.0-10.0) 11/25/16 15:00 RBC 6.71 M/mm3 (3.60-5.2) H 11/25/16 15:00 Hgb 15.0 GM/dL (10.7-15.3) D 11/25/16 15:00 Hct 47.2 % (32.4-45.2) H 11/25/16 15:00 MCV 70.3 fl (80-96) L 11/25/16 15:00 MCHC 31.8 g/dl (32.0-36.0) L 11/25/16 15:00 RDW 14.5 % (11.6-15.6) 11/25/16 15:00 Plt Count 337 K/MM3 (134-434) 11/25/16 15:00 MPV 9.4 fl (7.5-11.1) 11/25/16 15:00 CMP Sodium 139 mmol/L (136-145) 11/26/16 03:30 Potassium 4.0 mmol/L (3.5-5.1) 11/26/16 03:30 Chloride 106 mmol/L (98-107) 11/26/16 03:30 Carbon Dioxide 18 mmol/L (21-32) L D 11/26/16 03:30 Anion Gap 15 (8-16) 11/26/16 03:30 BUN 9 mg/dL (7-18) D 11/26/16 03:30 Creatinine 1.0 mg/dL (0.55-1.02) 11/26/16 03:30 Creat Clearance w eGFR 49.69 (>60) 11/25/16 16:26 Random Glucose 203 mg/dL (74-106) H D 11/26/16 03:30 Calcium 8.7 mg/dL (8.5-10.1) 11/26/16 03:30 Total Bilirubin 0.7 mg/dL (0.2-1.0) 11/25/16 16:26 AST 16 U/L (15-37) D 11/25/16 16:26 ALT 23 U/L (12-78) D 11/25/16 16:26 Alkaline Phosphatase 84 U/L (45-117) 11/25/16 16:26 Total Protein 7.7 g/dl (6.4-8.2) 11/25/16 16:26 Albumin 3.9 g/dl (3.4-5.0) 11/25/16 16:26 CARDIAC ENZYMES Creatine Kinase 27 IU/L (26-192) 11/25/16 16:46 Troponin I < 0.02 ng/ml (0.00-0.05) 11/25/16 23:00 A/P 66yo F wtih PMH DM presented to the Er and was admitted for further evalaution of their emergent condition 1. DKA- AG closed at 0330. given levemir 15 units at that time and fed. awaiting repeat chemistries. if AG remains closed will d/c insulin ggt. A1c 13.4 will require insulin on discharge. will monitor sugars over the next 24H to determine insulin requirements. diabetic teaching. nausea control 2. KATIE- dehydration. improved. 3. DVT ppx- hep sq 4. stable for transfer to medical floors, pending repeat chemistries Visit type - Emergency Visit Emergency Visit: Yes ED Registration Date: 11/25/16 Care time: The patient presented to the Emergency Department on the above date and was hospitalized for further evaluation of their emergent condition. - New Patient This patient is new to me today: Yes Date on this admission: 11/26/16 - Critical Care Critical Care patient: Yes Total Critical Care Time (in minutes): 35 Critical Care Statement: The care of this patient involved high complexity decision making to prevent further life threatening deterioration of the patient 's condition and/or to evalute & treat vital organ system(s) failure or risk of failure. - Discharge Referral Referred to [facility] Med P.C.: No
[2016-11-26 08:41] LABS: BASOPHIL 0.4 % (0-2.0); EOSINOPHIL 0.8 % (0-4.5); MCH 22.5 pg (25.7-33.7); MEAN CELL VOLUME 68.2 fl (80-96); MEAN PLT VOLUME 9.9 fl (7.5-11.1); NEUTROPHILS 44.1 % (42.8-82.8); PLATELET COUNT 253 K/MM3 (134-434); RDW 13.8 % (11.6-15.6); WHITE BLOOD COUNT 6.1 K/mm3 (4.0-10.0)
[2016-11-26 08:53] LABS: INR 1.04 (0.82-1.09); PROTHROMBIN TIME (PATIENT) 11.5 SEC (9.98-11.88)
[2016-11-26 08:55] LABS: ACTIVATED PTT 24.2 SECONDS (26.9-34.4)
[2016-11-26 08:58] LABS: ALBUMIN 3.4 g/dl (3.4-5.0); CALCIUM 8.7 mg/dL (8.5-10.1); MAGNESIUM 1.8 mg/dL (1.8-2.4); TOT PROT 6.5 g/dl (6.4-8.2)
[2016-11-26 09:06] LABS: BILIRUBIN,TOTAL 0.9 mg/dL (0.2-1.0)
[2016-11-26] MEDS: MUPIROCIN 2% TOPICAL OINTMENT FOR DECOLONIZATION NS SCH ×2 (09:20→21:54)
[2016-11-26] MEDS: PANTOPRAZOLE SODIUM 100 ML IVPB SCH ×2 (09:21→21:52)
[2016-11-26] MEDS ORDERED: PT OWN MED DRAWER 7, Y5N ONE (09:47)
[2016-11-26 09:50] LABS: PHOSPHOROUS 1.1 mg/dL (2.5-4.9)
[2016-11-26] MEDS ORDERED: NAPH,MB-DB/K PH,MBDB POWDER PACKET PO ONE ×2 (10:00→21:32)
[2016-11-26] MEDS ORDERED: CEFTRIAXONE 50 ML IVPB SCH (10:00)
--- NOTE | 2016-11-26 10:21 | PN ---
Progress Note (short form) - Note Progress Note: PULM/CCM Pt seen and examined in ICU 24HR: Gap closed SQ insulin started ate breakfast HCO3 stopped Active Medications Chlorhexidine Gluconate (Hibiclens For Decolonization -) 1 applic TP HS [facility] Last Admin: 11/25/16 21:27 Dose: 1 applic Heparin Sodium (Porcine) (Heparin -) 5,000 unit SQ TID [facility] Last Admin: 11/26/16 06:00 Dose: 5,000 unit Pantoprazole Sodium (Protonix 40mg Ivpb (Pre-Docked)) 100 mls @ 200 mls/hr IVPB BID [facility] Last Admin: 11/26/16 09:21 Dose: 200 mls/hr Ceftriaxone Sodium (Rocephin 1gm Ivpb (Pre-Docked)) 50 mls @ 100 mls/hr IVPB DAILY [facility] Last Admin: 11/26/16 10:16 Dose: 100 mls/hr Metoclopramide HCl (Reglan Injection -) 10 mg IVPB Q6H PRN PRN Reason: NAUSEA AND/OR VOMITING Mupirocin (Bactroban Ointment (For Decolonization) -) 1 applic NS BID [facility] Stop: 11/30/16 21:59 Last Admin: 11/26/16 09:20 Dose: 1 applic Problem List - Problems (1) DKA (diabetic ketoacidosis) Code(s): E13.10 - OTH DIABETES MELLITUS WITH KETOACIDOSIS WITHOUT COMA Qualifiers: Diabetes mellitus type: type 2 Diabetes mellitus complication detail: without coma Qualified Code(s): E13.10 - Other specified diabetes mellitus with ketoacidosis without coma
[2016-11-26 10:37] LABS: PLATELET COMMENT2 NO CLOTTING DETECTED; PLATELET COMMENT3 FEW LARGE PLTS; PLATELET ESTIMATE ADEQUATE (NORMAL)
[2016-11-26] MEDS ORDERED: POTASSIUM PHOSPHATE 40 MM in SODIUM CHLORIDE 500 ML IVPB ONE (10:38)
[2016-11-26] MEDS ORDERED: INSULIN REGULAR HUMAN 100 UNITS/ML *VIAL ONE (10:42)
[2016-11-26] MEDS ORDERED: INSULIN REGULAR 100 UNITS in SODIUM CHLORIDE 99 ML IVPB SCH (10:45)
[2016-11-26 13:04] LABS: CREATININE 1.1 mg/dL (0.55-1.02)
[2016-11-26] MEDS ORDERED: SODIUM CHLORIDE 0.45% 1,000 ML IV SCH (13:45)
[2016-11-26 15:47] LABS: CALCIUM 8.8 mg/dL (8.5-10.1)
--- NOTE | 2016-11-26 18:31 | EKG ---
Test Reason : Blood Pressure : / mmHG Vent. Rate : 107 BPM Atrial Rate : 107 BPM P-R Int : 146 ms QRS Dur : 074 ms QT Int : 364 ms P-R-T Axes : 000 015 063 degrees QTc Int : 485 ms SINUS TACHYCARDIA OTHERWISE NORMAL ECG NO PREVIOUS ECGS AVAILABLE Confirmed by BHARATH BUSTILLO MD ([id number]) on 11/26/2016 6:30:43 PM Referred By: Confirmed By:BHARATH BUSTILLO MD
[2016-11-26 19:04] LABS: CALCIUM 8.9 mg/dL (8.5-10.1); PHOSPHOROUS 2.3 mg/dL (2.5-4.9)
[2016-11-26] MEDS: CHLORHEXIDINE GLUCONATE 4% CLEANSER FOR DECOLONIZATION TP SCH (21:53)
[2016-11-27 06:17] LABS: MCH 22.5 pg (25.7-33.7); MCHC 33.4 g/dl (32.0-36.0); MEAN CELL VOLUME 67.5 fl (80-96); MEAN PLT VOLUME 9.1 fl (7.5-11.1); PLATELET COUNT 279 K/MM3 (134-434); RDW 13.3 % (11.6-15.6); WHITE BLOOD COUNT 4.9 K/mm3 (4.0-10.0)
[2016-11-27] MEDS: HEPARIN NA (PORCINE) 5,000 UNITS/ML 1ML VIAL SQ SCH ×3 (06:25→21:51)
[2016-11-27 06:44] LABS: CALCIUM 8.1 mg/dL (8.5-10.1); CREATININE 0.6 mg/dL (0.55-1.02)
[2016-11-27] MEDS ORDERED: INSULIN SLIDING SCALE (NOVOLOG) 1 VIAL SQ SCH ×2 (07:00→11:00)
--- NOTE | 2016-11-27 07:18 | PN ---
Progress Note (short form) - Note Progress Note: currently asymptomatic, states she was compliant with home medications (only taking Metformin) but only started 3 months ago. tolerating diet last BM 5 days ago. denies Cp, SOB,fever, chills, N/V/D cyaracom [id number] Current Medications Generic Name Dose Route Start Last Admin Trade Name Freq PRN Reason Stop Dose Admin Chlorhexidine Gluconate 1 applic 11/25/16 22:00 11/26/16 21:53 Hibiclens For Decolonization - TP 1 applic HS NAMRATA Administration Heparin Sodium (Porcine) 5,000 unit 11/25/16 22:00 11/27/16 06:25 Heparin - SQ 5,000 unit TID NAMRATA Administration Pantoprazole Sodium 100 mls @ 200 mls/hr 11/25/16 22:00 11/26/16 21:52 Protonix 40mg Ivpb (Pre-Docked) IVPB 200 mls/hr BID NAMRATA Administration Sodium Chloride 1,000 mls @ 100 mls/hr 11/26/16 13:45 11/26/16 13:45 1/2 Normal Saline IV 100 mls/hr ASDIR NAMRATA Administration Insulin Aspart 1 vial 11/27/16 07:00 11/27/16 06:23 Novolog Vial Sliding Scale - SQ 2 units ACHS NAMRATA Administration Protocol Metoclopramide HCl 10 mg 11/25/16 20:11 Reglan Injection - IVPB Q6H PRN NAUSEA AND/OR VOMITING Mupirocin 1 applic 11/25/16 22:00 11/26/16 21:54 Bactroban Ointment (For Decolonization) - NS 11/30/16 21:59 1 applic BID NAMRATA Administration Last Vital Signs Temp Pulse Resp BP Pulse Ox 98 F 85 20 118/78 100 11/27/16 06:00 11/27/16 06:00 11/27/16 06:00 11/27/16 06:00 11/26/16 20:09 General NAD CV S1 S2 RRR no murmur/rub/gallop Lungs CTA B/L No wheezing/rales/rhonchi Abdomen soft NT/ND Extremities no pedal edema CBCD WBC 4.9 K/mm3 (4.0-10.0) 11/27/16 05:20 RBC 5.49 M/mm3 (3.60-5.2) H 11/27/16 05:20 Hgb 12.4 GM/dL (10.7-15.3) 11/27/16 05:20 Hct 37.0 % (32.4-45.2) 11/27/16 05:20 MCV 67.5 fl (80-96) L 11/27/16 05:20 MCHC 33.4 g/dl (32.0-36.0) 11/27/16 05:20 RDW 13.3 % (11.6-15.6) 11/27/16 05:20 Plt Count 279 K/MM3 (134-434) 11/27/16 05:20 MPV 9.1 fl (7.5-11.1) 11/27/16 05:20 CMP Sodium 140 mmol/L (136-145) 11/27/16 05:20 Potassium 3.3 mmol/L (3.5-5.1) L 11/27/16 05:20 Chloride 104 mmol/L (98-107) 11/27/16 05:20 Carbon Dioxide 23 mmol/L (21-32) 11/27/16 05:20 Anion Gap 13 (8-16) 11/27/16 05:20 BUN 6 mg/dL (7-18) L 11/27/16 05:20 Creatinine 0.6 mg/dL (0.55-1.02) D 11/27/16 05:20 Creat Clearance w eGFR 55.47 (>60) 11/26/16 07:30 Calcium 8.1 mg/dL (8.5-10.1) L 11/27/16 05:20 Total Bilirubin 0.9 mg/dL (0.2-1.0) D 11/26/16 07:30 AST 18 U/L (15-37) 11/26/16 07:30 ALT 16 U/L (12-78) D 11/26/16 07:30 Alkaline Phosphatase 67 U/L (45-117) D 11/26/16 07:30 Total Protein 6.5 g/dl (6.4-8.2) 11/26/16 07:30 Albumin 3.4 g/dl (3.4-5.0) 11/26/16 07:30 A/P 66yo F wtih PMH DM presented to the Er and was admitted for further evalaution of their emergent condition 1. DKA-clinically improved. AG re-opened yesterday and started back on insulin ggt. early this morning AG closed and insulin ggt turned off at 0200. now tolerating diet. educated need to be d/c on insulin. start levemir 10 units QHS. will do injection teaching, diabetic teaching with dietary. monitor coverage requirements over the next 24H. will need to establish PMD care ( unsure if she wants to return to her PMD). iss, bgm. d/c protonix IV. nausea control 2. KATIE- dehydration. resolved. d/c IVF 3. hypokalemia- kcl 40meq po 4. hypophosphatemia- neutraphos x2 5. constipation- should improve with diet. start colace 6. DVT ppx- hep sq 7. stable for transfer to medical floors Visit type - Emergency Visit Emergency Visit: Yes ED Registration Date: 11/25/16 Care time: The patient presented to the Emergency Department on the above date and was hospitalized for further evaluation of their emergent condition. - New Patient This patient is new to me today: No - Critical Care Critical Care patient: Yes Total Critical Care Time (in minutes): 35 Critical Care Statement: The care of this patient involved high complexity decision making to prevent further life threatening deterioration of the patient 's condition and/or to evalute & treat vital organ system(s) failure or risk of failure. - Discharge Referral Referred to [facility] Med P.C.: No
[2016-11-27] MEDS ORDERED: POTASSIUM PHOSPHATE 40 MM in SODIUM CHLORIDE 250 ML IVPB ONE (07:21)
[2016-11-27] MEDS ORDERED: NAPH,MB-DB/K PH,MBDB POWDER PACKET PO ONE (07:22)
[2016-11-27] MEDS ORDERED: POTASSIUM CHLORIDE 40 MEQ/30 ML UNIT DOSE CUP PO ONE ×2 (07:22→17:29)
[2016-11-27] MEDS ORDERED: METOCLOPRAMIDE HCL INJECTION 10 MG/2 ML VIAL IVPB PRN (08:51)
--- NOTE | 2016-11-27 10:18 | PN ---
Progress Note (short form) - Note Progress Note: Seen and examined in the ICU BS improved AG remains closed Tolerating diet Current Medications Docusate Sodium (Colace -) 100 mg PO TID NAMRATA Heparin Sodium (Porcine) (Heparin -) 5,000 unit SQ TID NAMRATA Insulin Aspart (Novolog Vial Sliding Scale -) 1 vial SQ ACHS NAMRATA PRN Reason: Protocol Insulin Detemir (Levemir Vial) 10 units SQ HS NAMRATA Metoclopramide HCl (Reglan Injection -) 10 mg IVPB Q6H PRN PRN Reason: NAUSEA AND/OR VOMITING Vital Signs Period Temp Pulse Resp BP Sys/Zeng Pulse Ox Last 24 Hr 97.0 F-98.4 F 80-103 17-20 101-126/67-84 100-100 Intake & Output 11/24/16 11/25/16 11/26/16 11/27/16 23:59 23:59 23:59 23:59 Intake Total 2697 1912 Output Total 400 1350 350 Balance -400 1347 1562 Weight 69.173 kg 69.967 kg 71.441 kg Exam: No distress HEENT: PERRL CV: NSR Pulm: CTA Abd: SNTND Ext: WWP no edema Neuro: alert, cooperative CBCD WBC 4.9 K/mm3 (4.0-10.0) 11/27/16 05:20 RBC 5.49 M/mm3 (3.60-5.2) H 11/27/16 05:20 Hgb 12.4 GM/dL (10.7-15.3) 11/27/16 05:20 Hct 37.0 % (32.4-45.2) 11/27/16 05:20 MCV 67.5 fl (80-96) L 11/27/16 05:20 MCHC 33.4 g/dl (32.0-36.0) 11/27/16 05:20 RDW 13.3 % (11.6-15.6) 11/27/16 05:20 Plt Count 279 K/MM3 (134-434) 11/27/16 05:20 MPV 9.1 fl (7.5-11.1) 11/27/16 05:20 CMP Sodium 140 mmol/L (136-145) 11/27/16 05:20 Potassium 3.3 mmol/L (3.5-5.1) L 11/27/16 05:20 Chloride 104 mmol/L (98-107) 11/27/16 05:20 Carbon Dioxide 23 mmol/L (21-32) 11/27/16 05:20 Anion Gap 13 (8-16) 11/27/16 05:20 BUN 6 mg/dL (7-18) L 11/27/16 05:20 Creatinine 0.6 mg/dL (0.55-1.02) D 11/27/16 05:20 Creat Clearance w eGFR 55.47 (>60) 11/26/16 07:30 Random Glucose 176 mg/dL (74-106) H D 11/27/16 05:20 Calcium 8.1 mg/dL (8.5-10.1) L 11/27/16 05:20 Total Bilirubin 0.9 mg/dL (0.2-1.0) D 11/26/16 07:30 AST 18 U/L (15-37) 11/26/16 07:30 ALT 16 U/L (12-78) D 11/26/16 07:30 Alkaline Phosphatase 67 U/L (45-117) D 11/26/16 07:30 Total Protein 6.5 g/dl (6.4-8.2) 11/26/16 07:30 Albumin 3.4 g/dl (3.4-5.0) 11/26/16 07:30 CARDIAC ENZYMES Creatine Kinase 27 IU/L (26-192) 11/25/16 16:46 Troponin I < 0.02 ng/ml (0.00-0.05) 11/25/16 23:00 Current Active Problems DKA (diabetic ketoacidosis) (Acute) - cont insulin - diabetic diet - needs nutrition education - incentive rod - OOb to chair as tolerates stable for floor transfer Boerem ACNP Pulm/CCM CCT: 35m
[2016-11-27 12:41] LABS: CALCIUM 8.6 mg/dL (8.5-10.1); CREATININE 0.9 mg/dL (0.55-1.02)
[2016-11-27] MEDS ORDERED: INSULIN (NOVOLOG) ASPART 100 UNITS/ML 10ML VIAL SQ ONE (13:01)
[2016-11-27] MEDS ORDERED: HEMOQUE TEST 1 EACH EACH ONE (14:07)
[2016-11-27] MEDS ORDERED: INSULIN REGULAR 100 UNITS in SODIUM CHLORIDE 99 ML IVPB SCH (14:15)
[2016-11-27] MEDS: DOCUSATE SODIUM 100 MG CAPSULE (FP) PO SCH ×2 (14:46→21:51)
[2016-11-27 17:04] LABS: CALCIUM 8.6 mg/dL (8.5-10.1); CREATININE 0.9 mg/dL (0.55-1.02)
[2016-11-27] MEDS ORDERED: INSULIN DETEMIR 100 UNITS/ML MDV SQ SCH (22:00)
[2016-11-27] MEDS ORDERED: INSULIN DETEMIR 100 UNITS/ML MDV SQ ONE (22:24)
[2016-11-28 05:59] LABS: MCH 22.3 pg (25.7-33.7); MCHC 33.3 g/dl (32.0-36.0); MEAN CELL VOLUME 67.1 fl (80-96); MEAN PLT VOLUME 9.4 fl (7.5-11.1); PLATELET COUNT 261 K/MM3 (134-434); RDW 13.2 % (11.6-15.6); WHITE BLOOD COUNT 5.7 K/mm3 (4.0-10.0)
[2016-11-28] MEDS: INSULIN SLIDING SCALE (NOVOLOG) 1 VIAL SQ SCH ×3 (06:41→17:09)
[2016-11-28] MEDS: HEPARIN NA (PORCINE) 5,000 UNITS/ML 1ML VIAL SQ SCH ×3 (06:42→21:48)
[2016-11-28] MEDS: DOCUSATE SODIUM 100 MG CAPSULE (FP) PO SCH ×3 (06:42→21:48)
[2016-11-28] MEDS ORDERED: INSULIN DETEMIR 100 UNITS/ML MDV SQ SCH ×2 (07:00→22:00)
--- NOTE | 2016-11-28 07:03 | PN ---
Physical Exam: SUBJECTIVE: Patient seen and examined OBJECTIVE: Vital Signs Period Temp Pulse Resp BP Sys/Zeng Pulse Ox Last 24 Hr 97.8 F-98.5 F 82-103 18-21 94-132/62-82 100-100 GENERAL: The patient is awake, alert, and fully oriented, in no acute distress. HEAD: Normal with no signs of trauma. EYES: PERRL, extraocular movements intact, sclera anicteric, conjunctiva clear. No ptosis. ENT: Ears normal, nares patent, oropharynx clear without exudates, moist mucous membranes. NECK: Trachea midline, full range of motion, supple. LUNGS: Breath sounds equal, clear to auscultation bilaterally, no wheezes, no crackles, no accessory muscle use. HEART: Regular rate and rhythm, S1, S2 without murmur, rub or gallop. ABDOMEN: Soft, nontender, nondistended, normoactive bowel sounds, no guarding, no rebound, no hepatosplenomegaly, no masses. EXTREMITIES: 2+ pulses, warm, well-perfused, no edema. NEUROLOGICAL: Cranial nerves II through XII grossly intact. Normal speech, gait not observed. PSYCH: Normal mood, normal affect. SKIN: Warm, dry, normal turgor, no rashes or lesions noted Laboratory Results - last 24 hr 11/26/16 11/26/16 11/26/16 21:31 22:19 23:28 WBC RBC Hgb Hct MCV MCHC RDW Plt Count MPV Neutrophils % Lymphocytes % Sodium Potassium Chloride Carbon Dioxide Anion Gap BUN Creatinine POC Glucometer 294.93093 256.14583 [phone] Random Glucose Calcium 11/27/16 11/27/16 11/27/16 00:38 02:08 05:52 WBC RBC Hgb Hct MCV MCHC RDW Plt Count MPV Neutrophils % Lymphocytes % Sodium Potassium Chloride Carbon Dioxide Anion Gap BUN Creatinine POC Glucometer 151.38108 140.79536 179.83659 Random Glucose Calcium 11/27/16 11/27/16 11/27/16 12:00 16:06 16:33 WBC RBC Hgb Hct MCV MCHC RDW Plt Count MPV Neutrophils % Lymphocytes % Sodium 132 L 137 Potassium 4.9 D 3.5 D Chloride 98 101 Carbon Dioxide 19 L 25 D Anion Gap 15 11 BUN 8 D 10 D Creatinine 0.9 D 0.9 POC Glucometer [phone] Random Glucose 556 H* D 382 H* D Calcium 8.6 8.6 11/27/16 11/27/16 11/27/16 17:05 18:05 18:57 WBC RBC Hgb Hct MCV MCHC RDW Plt Count MPV Neutrophils % Lymphocytes % Sodium Potassium Chloride Carbon Dioxide Anion Gap BUN Creatinine POC Glucometer 334.71840 323.08577 255.31894 Random Glucose Calcium 11/27/16 11/27/16 11/27/16 20:25 21:27 22:22 WBC RBC Hgb Hct MCV MCHC RDW Plt Count MPV Neutrophils % Lymphocytes % Sodium Potassium Chloride Carbon Dioxide Anion Gap BUN Creatinine POC Glucometer 213.79251 186.10134 276.95194 Random Glucose Calcium 11/27/16 11/28/16 11/28/16 23:27 00:29 01:21 WBC RBC Hgb Hct MCV MCHC RDW Plt Count MPV Neutrophils % Lymphocytes % Sodium Potassium Chloride Carbon Dioxide Anion Gap BUN Creatinine POC Glucometer 356.96297 345.98573 313.99302 Random Glucose Calcium 11/28/16 11/28/16 11/28/16 02:24 03:43 05:05 WBC 5.7 RBC 5.26 H Hgb 11.7 Hct 35.3 MCV 67.1 L MCHC 33.3 RDW 13.2 Plt Count 261 MPV 9.4 Neutrophils % Y Lymphocytes % Y Sodium Potassium Chloride Carbon Dioxide Anion Gap BUN Creatinine POC Glucometer 254.80522 211.12651 Random Glucose Calcium Active Medications Generic Name Dose Route Start Last Admin Trade Name Freq PRN Reason Stop Dose Admin Docusate Sodium 100 mg 11/27/16 14:00 11/28/16 06:42 Colace - PO 100 mg TID [facility] Administration Heparin Sodium (Porcine) 5,000 unit 11/27/16 14:00 11/28/16 06:42 Heparin - SQ 5,000 unit TID [facility] Administration Insulin Aspart 1 vial 11/28/16 07:00 11/28/16 06:41 Novolog Vial Sliding Scale - SQ 3 units TIDAC [facility] Administration Protocol Insulin Detemir 18 units 11/28/16 07:00 11/28/16 06:40 Levemir Vial SQ 18 units BIDAC NAMRATA Administration Metoclopramide HCl 10 mg 11/27/16 08:51 Reglan Injection - IVPB Q6H PRN NAUSEA AND/OR VOMITING ASSESSMENT/PLAN:
[2016-11-28 07:04] LABS: CALCIUM 8.5 mg/dL (8.5-10.1); MAGNESIUM 1.7 mg/dL (1.8-2.4)
[2016-11-28 07:06] LABS: CREATININE 0.6 mg/dL (0.55-1.02); PHOSPHOROUS 3.2 mg/dL (2.5-4.9)
--- NOTE | 2016-11-28 07:36 | HOSP ---
Subjective - Review of Symptoms Subjective: BGM done >400. serum studies done, AG remains closed but sugars 556. Will place back on insulin ggt and treat until sugar is <200. BGM Q1H, pt is currently asymptomatic. keep pt in MICU at this time for close glucose monitoring Physical Examination Vital Signs: Vital Signs Temperature 98 F 11/28/16 06:00 Pulse Rate 82 11/28/16 06:00 Respiratory Rate 20 11/28/16 06:00 Blood Pressure 132/81 11/28/16 06:00 O2 Sat by Pulse Oximetry (%) 100 11/27/16 20:36 Labs: CBC, BMP 11/28/16 05:05 11/28/16 05:05
[2016-11-28] MEDS ORDERED: MAGNESIUM OXIDE 400 MG TABLET (FP) PO ONE (07:37)
--- NOTE | 2016-11-28 13:05 | PN ---
Teaching Attending Note Name of Resident: Cali Winters ATTENDING PHYSICIAN STATEMENT I saw and evaluated the patient. I reviewed the resident's note and discussed the case with the resident. I agree with the resident's findings and plan as documented. SUBJECTIVE: Patient seen and examined in the ICU. Awake and alert. Off IV insulin. No CP or SOB. Intake & Output 11/25/16 11/26/16 11/27/16 11/28/16 23:59 23:59 23:59 23:59 Intake Total 2697 2933 920 Output Total 400 1350 1550 500 Balance -400 1347 1383 420 Weight 152 lb 8 oz 154 lb 4 oz 157 lb 8 oz 160 lb 1 oz Last Vital Signs Temp Pulse Resp BP Pulse Ox 98 F 94 H 22 116/65 100 11/28/16 10:00 11/28/16 10:00 11/28/16 10:00 11/28/16 10:00 11/28/16 09:00 Active Medications Docusate Sodium (Colace -) 100 mg PO TID [facility] Last Admin: 11/28/16 06:42 Dose: 100 mg Heparin Sodium (Porcine) (Heparin -) 5,000 unit SQ TID [facility] Last Admin: 11/28/16 06:42 Dose: 5,000 unit Insulin Aspart (Novolog Vial Sliding Scale -) 1 vial SQ TIDAC [facility] PRN Reason: Protocol Last Admin: 11/28/16 12:01 Dose: 5 units Insulin Detemir (Levemir Vial) 18 units SQ BIDAC [facility] Last Admin: 11/28/16 06:40 Dose: 18 units Metoclopramide HCl (Reglan Injection -) 10 mg IVPB Q6H PRN PRN Reason: NAUSEA AND/OR VOMITING GEN: Awake and alert HEENT: PERRL CV: S1S2 Pulm: Clear Abd: Soft, (+) BS, NT, ND Ext: WWP no edema Neuro: alert, cooperative Laboratory Results - last 24 hr 11/25/16 11/25/16 11/26/16 18:36 19:39 10:33 WBC RBC Hgb Hct MCV MCHC RDW Plt Count MPV Neutrophils % Lymphocytes % Monocytes % Differential Comment Reactive Lymphocytes Sodium Potassium Chloride Carbon Dioxide Anion Gap BUN Creatinine POC Glucometer > 400 > 400 > 400 Random Glucose Calcium Phosphorus Magnesium 11/26/16 11/26/16 11/26/16 13:12 14:11 21:31 WBC RBC Hgb Hct MCV MCHC RDW Plt Count MPV Neutrophils % Lymphocytes % Monocytes % Differential Comment Reactive Lymphocytes Sodium Potassium Chloride Carbon Dioxide Anion Gap BUN Creatinine POC Glucometer > 400 > 400 294.59055 Random Glucose Calcium Phosphorus Magnesium 11/26/16 11/26/16 11/27/16 22:19 23:28 00:38 WBC RBC Hgb Hct MCV MCHC RDW Plt Count MPV Neutrophils % Lymphocytes % Monocytes % Differential Comment Reactive Lymphocytes Sodium Potassium Chloride Carbon Dioxide Anion Gap BUN Creatinine POC Glucometer 256.42552 205.89805 [phone] Random Glucose Calcium Phosphorus Magnesium 11/27/16 11/27/16 11/27/16 02:08 05:52 11:06 WBC RBC Hgb Hct MCV MCHC RDW Plt Count MPV Neutrophils % Lymphocytes % Monocytes % Differential Comment Reactive Lymphocytes Sodium Potassium Chloride Carbon Dioxide Anion Gap BUN Creatinine POC Glucometer 140.45423 179.92468 > 400 Random Glucose Calcium Phosphorus Magnesium 11/27/16 11/27/16 11/27/16 14:10 16:06 16:33 WBC RBC Hgb Hct MCV MCHC RDW Plt Count MPV Neutrophils % Lymphocytes % Monocytes % Differential Comment Reactive Lymphocytes Sodium 137 Potassium 3.5 D Chloride 101 Carbon Dioxide 25 D Anion Gap 11 BUN 10 D Creatinine 0.9 POC Glucometer > 400 309.29996 Random Glucose 382 H* D Calcium 8.6 Phosphorus Magnesium 11/27/16 11/27/16 11/27/16 17:05 18:05 18:57 WBC RBC Hgb Hct MCV MCHC RDW Plt Count MPV Neutrophils % Lymphocytes % Monocytes % Differential Comment Reactive Lymphocytes Sodium Potassium Chloride Carbon Dioxide Anion Gap BUN Creatinine POC Glucometer 334.44735 323.49492 [phone] Random Glucose Calcium Phosphorus Magnesium 11/27/16 11/27/16 11/27/16 20:25 21:27 22:22 WBC RBC Hgb Hct MCV MCHC RDW Plt Count MPV Neutrophils % Lymphocytes % Monocytes % Differential Comment Reactive Lymphocytes Sodium Potassium Chloride Carbon Dioxide Anion Gap BUN Creatinine POC Glucometer 213.12057 186.60869 [phone] Random Glucose Calcium Phosphorus Magnesium 11/27/16 11/28/16 11/28/16 23:27 00:29 01:21 WBC RBC Hgb Hct MCV MCHC RDW Plt Count MPV Neutrophils % Lymphocytes % Monocytes % Differential Comment Reactive Lymphocytes Sodium Potassium Chloride Carbon Dioxide Anion Gap BUN Creatinine POC Glucometer 356.36802 345.27491 [phone] Random Glucose Calcium Phosphorus Magnesium 11/28/16 11/28/16 11/28/16 02:24 03:43 05:05 WBC RBC Hgb Hct MCV MCHC RDW Plt Count MPV Neutrophils % Lymphocytes % Monocytes % Differential Comment Reactive Lymphocytes Sodium 139 Potassium 4.0 Chloride 102 Carbon Dioxide 26 Anion Gap 11 BUN 8 Creatinine 0.6 D POC Glucometer 254.19314 211.74201 Random Glucose 219 H D Calcium 8.5 Phosphorus 3.2 D Magnesium 1.7 L 11/28/16 05:05 WBC 5.7 RBC 5.26 H Hgb 11.7 Hct 35.3 MCV 67.1 L MCHC 33.3 RDW 13.2 Plt Count 261 MPV 9.4 Neutrophils % 24.0 L D Lymphocytes % 64.0 H D Monocytes % 7.0 Differential Comment Manual diff done Reactive Lymphocytes 5 Sodium Potassium Chloride Carbon Dioxide Anion Gap BUN Creatinine POC Glucometer Random Glucose Calcium Phosphorus Magnesium IMP: DKA (diabetic ketoacidosis) PLAN: - SQ insulin - diabetic diet - needs nutrition education - OOB to chair - Floor Dr Luis
--- NOTE | 2016-11-28 13:20 | PN ---
Physical Exam: SUBJECTIVE: Patient seen and examined, patient lying comfartably on bed, denies pain abdomen, chest pain, sob. Patient accepting orally anion gap closed. OBJECTIVE: Vital Signs Period Temp Pulse Resp BP Sys/Zeng Pulse Ox Last 24 Hr 97.8 F-98.5 F 82-101 18-22 94-132/62-82 100-100 GENERAL: The patient is awake, alert, and fully oriented, in no acute distress. HEAD: Normal with no signs of trauma. EYES: PERRL, extraocular movements intact, ENT: Ears normal, nares patent, moist mucous membranes. NECK: Trachea midline, full range of motion, supple. LUNGS: Breath sounds equal, clear to auscultation bilaterally, no wheezes, no crackles, no accessory muscle use. HEART: s1s2 normal ABDOMEN: Soft, nontender, nondistended, normoactive bowel sounds, no guarding, no rebound, EXTREMITIES: 2+ pulses, warm, well-perfused, no edema. NEUROLOGICAL: Cranial nerves II through XII grossly intact. Normal speech, gait not observed. PSYCH: Normal mood, normal affect. SKIN: Warm, dry, Laboratory Results - last 24 hr 11/25/16 11/26/16 11/26/16 19:39 10:33 13:12 WBC RBC Hgb Hct MCV MCHC RDW Plt Count MPV Neutrophils % Lymphocytes % Monocytes % Differential Comment Reactive Lymphocytes Sodium Potassium Chloride Carbon Dioxide Anion Gap BUN Creatinine POC Glucometer > 400 > 400 > 400 Random Glucose Calcium Phosphorus Magnesium 11/26/16 11/26/16 11/26/16 14:11 21:31 22:19 WBC RBC Hgb Hct MCV MCHC RDW Plt Count MPV Neutrophils % Lymphocytes % Monocytes % Differential Comment Reactive Lymphocytes Sodium Potassium Chloride Carbon Dioxide Anion Gap BUN Creatinine POC Glucometer > 400 294.14396 256.51690 Random Glucose Calcium Phosphorus Magnesium 11/26/16 11/27/16 11/27/16 23:28 00:38 02:08 WBC RBC Hgb Hct MCV MCHC RDW Plt Count MPV Neutrophils % Lymphocytes % Monocytes % Differential Comment Reactive Lymphocytes Sodium Potassium Chloride Carbon Dioxide Anion Gap BUN Creatinine POC Glucometer 205.99385 151.41681 140.76215 Random Glucose Calcium Phosphorus Magnesium 11/27/16 11/27/16 11/27/16 05:52 11:06 14:10 WBC RBC Hgb Hct MCV MCHC RDW Plt Count MPV Neutrophils % Lymphocytes % Monocytes % Differential Comment Reactive Lymphocytes Sodium Potassium Chloride Carbon Dioxide Anion Gap BUN Creatinine POC Glucometer 179.94147 > 400 > 400 Random Glucose Calcium Phosphorus Magnesium 11/27/16 11/27/16 11/27/16 16:06 16:33 17:05 WBC RBC Hgb Hct MCV MCHC RDW Plt Count MPV Neutrophils % Lymphocytes % Monocytes % Differential Comment Reactive Lymphocytes Sodium 137 Potassium 3.5 D Chloride 101 Carbon Dioxide 25 D Anion Gap 11 BUN 10 D Creatinine 0.9 POC Glucometer 309.46362 334.05207 Random Glucose 382 H* D Calcium 8.6 Phosphorus Magnesium 11/27/16 11/27/16 11/27/16 18:05 18:57 20:25 WBC RBC Hgb Hct MCV MCHC RDW Plt Count MPV Neutrophils % Lymphocytes % Monocytes % Differential Comment Reactive Lymphocytes Sodium Potassium Chloride Carbon Dioxide Anion Gap BUN Creatinine POC Glucometer 323.58924 255.82099 213.75053 Random Glucose Calcium Phosphorus Magnesium 11/27/16 11/27/16 11/27/16 21:27 22:22 23:27 WBC RBC Hgb Hct MCV MCHC RDW Plt Count MPV Neutrophils % Lymphocytes % Monocytes % Differential Comment Reactive Lymphocytes Sodium Potassium Chloride Carbon Dioxide Anion Gap BUN Creatinine POC Glucometer 186.65698 276.71387 356.19422 Random Glucose Calcium Phosphorus Magnesium 11/28/16 11/28/16 11/28/16 00:29 01:21 02:24 WBC RBC Hgb Hct MCV MCHC RDW Plt Count MPV Neutrophils % Lymphocytes % Monocytes % Differential Comment Reactive Lymphocytes Sodium Potassium Chloride Carbon Dioxide Anion Gap BUN Creatinine POC Glucometer 345.06121 313.69279 [phone] Random Glucose Calcium Phosphorus Magnesium 11/28/16 11/28/16 11/28/16 03:43 04:23 05:05 WBC RBC Hgb Hct MCV MCHC RDW Plt Count MPV Neutrophils % Lymphocytes % Monocytes % Differential Comment Reactive Lymphocytes Sodium 139 Potassium 4.0 Chloride 102 Carbon Dioxide 26 Anion Gap 11 BUN 8 Creatinine 0.6 D POC Glucometer 211.89569 210.77683 Random Glucose 219 H D Calcium 8.5 Phosphorus 3.2 D Magnesium 1.7 L 11/28/16 11/28/16 11/28/16 05:05 05:43 06:36 WBC 5.7 RBC 5.26 H Hgb 11.7 Hct 35.3 MCV 67.1 L MCHC 33.3 RDW 13.2 Plt Count 261 MPV 9.4 Neutrophils % 24.0 L D Lymphocytes % 64.0 H D Monocytes % 7.0 Differential Comment Manual diff done Reactive Lymphocytes 5 Sodium Potassium Chloride Carbon Dioxide Anion Gap BUN Creatinine POC Glucometer 229.35765 269.77573 Random Glucose Calcium Phosphorus Magnesium 11/28/16 11:50 WBC RBC Hgb Hct MCV MCHC RDW Plt Count MPV Neutrophils % Lymphocytes % Monocytes % Differential Comment Reactive Lymphocytes Sodium Potassium Chloride Carbon Dioxide Anion Gap BUN Creatinine POC Glucometer 383.11654 Random Glucose Calcium Phosphorus Magnesium Active Medications Generic Name Dose Route Start Last Admin Trade Name Freq PRN Reason Stop Dose Admin Docusate Sodium 100 mg 11/27/16 14:00 11/28/16 06:42 Colace - PO 100 mg TID [facility] Administration Heparin Sodium (Porcine) 5,000 unit 11/27/16 14:00 11/28/16 06:42 Heparin - SQ 5,000 unit TID [facility] Administration Insulin Aspart 1 vial 11/28/16 07:00 11/28/16 12:01 Novolog Vial Sliding Scale - SQ 5 units TIDAC [facility] Administration Protocol Insulin Detemir 18 units 11/28/16 07:00 11/28/16 06:40 Levemir Vial SQ 18 units BIDAC [facility] Administration Metoclopramide HCl 10 mg 11/27/16 08:51 Reglan Injection - IVPB Q6H PRN NAUSEA AND/OR VOMITING ASSESSMENT/PLAN: Patient is [id number] who speaks creole only, accompanied by her son, with past medical history of Diabetes Mellitus presented to the ED with the chief complaints of weakness since a week. # Diabetic Ketoacidosis. improved anion gap closed off insulin drip on levemir and novalog sliding scale accepting diabetic diet orally # gastritis could be from gastroperesis improved # Acute Kidney Injury with questionable CKD improved after iv hydration could be prerenal # FEN off iv fluid, orally accepting repeat electrolytes in morning on diabetic diet # Prophylaxis For DVT- Heparin 5000 U sq # Dispo: transfer to med surg Visit type - Emergency Visit Emergency Visit: Yes ED Registration Date: 11/25/16 Care time: The patient presented to the Emergency Department on the above date and was hospitalized for further evaluation of their emergent condition. - New Patient This patient is new to me today: Yes Date on this admission: 11/28/16 - Critical Care Critical Care patient: Yes Total Critical Care Time (in minutes): 45 Critical Care Statement: The care of this patient involved high complexity decision making to prevent further life threatening deterioration of the patient 's condition and/or to evalute & treat vital organ system(s) failure or risk of failure.
--- NOTE | 2016-11-28 14:20 | PN ---
Teaching Attending Note Name of Resident: Beatriz Ortiz ATTENDING PHYSICIAN STATEMENT I saw and evaluated the patient. I reviewed the resident's note and discussed the case with the resident. I agree with the resident's findings and plan as documented. SUBJECTIVE:currently asymptomatic. tolerating diet. denies CP, SOB,fever, chills , N/V/C/D OBJECTIVE: Last Vital Signs Temp Pulse Resp BP Pulse Ox 98.4 F 96 H 18 106/81 100 11/28/16 14:00 11/28/16 14:00 11/28/16 14:00 11/28/16 14:00 11/28/16 09:00 General NAD CV S1 S2 RRR no murmur/rub/gallop Lungs CTA B/l no wheezing/rales/rhonchi Abdomen soft nT/ND ASSESSMENT AND PLAN: 66yo F wtih PMH DM presented to the Er and was admitted for further evalaution of their emergent condition 1. DKA-clinically improved. insulin ggt turned off this AM. received lantus 18units, sugars remain high however insulin sliding scale is not adequate coverage. will adjust scale. start levemir 10 units BID and monitor coverage over the next 24 H. explained to pt in detail yesterday that she will require insulin on discharge. diabetic teaching. protonix IV. nausea control 2. KATIE- dehydration. resolved. 3. hypokalemia- resolved 4. hypophosphatemia- resolved 5. constipation- BM last night. cont to monitor 6. DVT ppx- hep sq 7. stable for transfer to medical floors The care of this patient involved high complexity decision making to prevent further life threatening deterioration of the patient's condition and/or to evalute & treat vital organ system(s) failure or risk of failure. 40 minutes
[2016-11-28] MEDS ORDERED: METOCLOPRAMIDE HCL INJECTION 10 MG/2 ML VIAL IVPB PRN (18:10)
--- NOTE | 2016-11-28 20:42 | PN ---
Physical Exam: SUBJECTIVE: Patient seen and examined, no new complaints, denies weakness, dizziness, MARINELLI,N,V,D, increased urinary frequency. Off insulin drip, tolerating PO. OBJECTIVE: Vital Signs Period Temp Pulse Resp BP Sys/Zeng Pulse Ox Last 24 Hr 97.8 F-98.5 F 82-96 17-22 94-132/62-81 96-100 GENERAL: The patient is awake, alert, and fully oriented, in no acute distress. HEAD: Normal with no signs of trauma. LUNGS: Breath sounds equal, clear to auscultation bilaterally, no wheezes, no crackles, no accessory muscle use. HEART: Regular rate and rhythm, S1, S2 without murmur, rub or gallop. ABDOMEN: Soft, nontender, nondistended, normoactive bowel sounds, no guarding, no rebound, no hepatosplenomegaly, no masses. EXTREMITIES: 2+ pulses, warm, well-perfused, no edema. NEUROLOGICAL: Cranial nerves II through XII grossly intact. Normal speech, gait not observed. PSYCH: Normal mood, normal affect. SKIN: Warm, dry, normal turgor, no rashes or lesions noted CBC, BMP 11/28/16 05:05 11/28/16 05:05 Active Medications Generic Name Dose Route Start Last Admin Trade Name Freq PRN Reason Stop Dose Admin Docusate Sodium 100 mg 11/28/16 22:00 Colace - PO TID [facility] Heparin Sodium (Porcine) 5,000 unit 11/28/16 22:00 Heparin - SQ TID [facility] Insulin Aspart 1 vial 11/28/16 14:00 11/28/16 17:09 Novolog Vial Sliding Scale - SQ 10 units TIDAC [facility] Administration Protocol Insulin Detemir 10 units 11/28/16 22:00 Levemir Vial SQ BID [facility] Metoclopramide HCl 10 mg 11/28/16 18:10 Reglan Injection - IVPB Q6H PRN NAUSEA AND/OR VOMITING ASSESSMENT/PLAN: This is a 66 year old female with a PMHx of DM, presented to the ER with dizziness , weakness, was not taking her regularly scheduled metformin 5000mg BID, admitted diabetic ketoacidosis. #Diabetic ketoacidosis: -off insulin driop -SS coverage was too low; adjusted today -Levemir 10mg bid; figure 24hr insulin need -diabetic teaching #gastritis: -iv protonix #KATIE secondary to prerenal dehydration -improved with IVF FEN: -Fluids: PO -Electrolytes: K and phos replace:wl -Diet: diabetic VTE prophylaxis: tid heparin sq Visit type - Emergency Visit Emergency Visit: Yes ED Registration Date: 11/25/16 Care time: The patient presented to the Emergency Department on the above date and was hospitalized for further evaluation of their emergent condition. - New Patient This patient is new to me today: Yes Date on this admission: 11/28/16 - Critical Care Critical Care patient: Yes Total Critical Care Time (in minutes): 35 Critical Care Statement: The care of this patient involved high complexity decision making to prevent further life threatening deterioration of the patient 's condition and/or to evalute & treat vital organ system(s) failure or risk of failure.
[2016-11-29] MEDS: HEPARIN NA (PORCINE) 5,000 UNITS/ML 1ML VIAL SQ SCH ×2 (06:18→14:46)
[2016-11-29] MEDS: DOCUSATE SODIUM 100 MG CAPSULE (FP) PO SCH ×2 (06:18→14:46)
[2016-11-29] MEDS: INSULIN SLIDING SCALE (NOVOLOG) 1 VIAL SQ SCH ×3 (06:19→17:34)
[2016-11-29 09:20] LABS: CREATININE 0.6 mg/dL (0.55-1.02)
--- NOTE | 2016-11-29 15:48 | DS ---
Physical Exam: SUBJECTIVE: Patient seen and examined tolerated diet, denies ,v,polyuria, polydipsia. OBJECTIVE: Vital Signs Period Temp Pulse Resp BP Sys/Zeng Pulse Ox Last 24 Hr 97.8 F-99 F 75-96 17-20 101-150/62-80 96-100 PHYSICAL EXAM GENERAL: The patient is awake, alert, and fully oriented, in no acute distress. HEAD: Normal with no signs of trauma. EYES: PERRL, extraocular movements intact, sclera anicteric, conjunctiva clear. ENT: Ears normal, nares patent, oropharynx clear without exudates, moist mucous membranes. NECK: Trachea midline, full range of motion, supple. LUNGS: Breath sounds equal, clear to auscultation bilaterally, no wheezes, no crackles, no accessory muscle use. HEART: Regular rate and rhythm, S1, S2 without murmur, rub or gallop. ABDOMEN: Soft, nontender, nondistended, normoactive bowel sounds, no guarding, no rebound, no hepatosplenomegaly, no masses. EXTREMITIES: 2+ pulses, warm, well-perfused, no edema. NEUROLOGICAL: Cranial nerves II through XII grossly intact. Normal speech, gait not observed. PSYCH: Normal mood, normal affect. SKIN: Warm, dry, normal turgor, no rashes or lesions noted. LABS Laboratory Results - last 24 hr 11/28/16 11/28/16 11/29/16 16:54 20:55 05:50 Sodium Potassium Chloride Carbon Dioxide Anion Gap BUN Creatinine POC Glucometer 392.91591 354 305 Random Glucose Calcium 11/29/16 11/29/16 07:00 11:54 Sodium 139 Potassium 3.9 Chloride 100 Carbon Dioxide 26 Anion Gap 13 BUN 6 L D Creatinine 0.6 POC Glucometer 385 Random Glucose 289 H D Calcium 9.0 HOSPITAL COURSE: Date of Admission:11/25/16 Date of Discharge: 11/29/16 This is a 66 year old female, Portuguese/Creole [place] language, presents ot the emergency room with weakness and dizziness. SHe has a past medial history of diabetes, on metformin, currently non complaint to medications, reason unknown. On presentation patient found to be in diabetic ketoacidosis. She was sent to ICU, started on insulin drip and IVF. anion gap closed and patient was started on levemir 15U bid with insulin SS coverage. Patient was seen by [employer] applier for diabetic diet education. Glucometer, strips and necessary mediation were ordered to pharmacy. Patient and daughter were counseled about diabetes, diet, and how to use insulin. Acute kidney injury on admission secondary to dehydration was resolved with IVF. Minutes to complete discharge: 35 <Beatriz Ortiz - Last Filed: 11/29/16 15:41> Physical Exam: ATTENDING PHYSICIAN STATEMENT I saw and evaluated the patient. I reviewed the resident's note and discussed the case with the resident. I agree with the resident's findings and plan as documented. SUBJECTIVE: seen and evaluated at the bedside OBJECTIVE: resting comfortably in bed ASSESSMENT AND PLAN: 66 year old woman admitted for DKA -anion gap now closed -pt asymptomatic and resting comfortably -discharge home on levemir BID and sliding scale -instructed to see PMD later this week and to avoid sugary/starchy foods <Eloy Davis - Last Filed: 11/29/16 18:08> Discharge Summary Reason For Visit: DIABETIC KETOACIDOSIS - Home Medications Comprehensive Discharge Medication List: Ambulatory Orders Insulin (Levemir) [Levemir Vial] 15 units SQ BIDAC #1 vial 11/29/16 Insulin Sliding Scale [Novolog Vial Sliding Scale -] 1 vial SQ TIDAC #1 vial [facility] [employer] [Glucometer Device] 1 each SQ ASDIR #1 kit [facility] [Glucometer Test Strips #100] 1 each SQ ASDIR #1 box 11/29/16 <Beatriz Ortiz - Last Filed: 11/29/16 15:41> - Home Medications Comprehensive Discharge Medication List: Ambulatory Orders Insulin (Levemir) [Levemir Vial] 15 units SQ BIDAC #1 vial 11/29/16 Insulin Sliding Scale [Novolog Vial Sliding Scale -] 1 vial SQ TIDAC #1 vial [facility] [Glucometer Device] 1 each SQ ASDIR #1 kit [employer] [Glucometer Test Strips #100] 1 each SQ ASDIR #1 box 11/29/16 Syringe,Safety with Needle,5Ml [Easy Touch Fliplock Syringe] 1 each ASDIR # 60 disp.syrin 11/29/16 <Eloy Davis - Last Filed: 11/29/16 18:08> Condition: Improved - Instructions Diet, Activity, Other Instructions: Ms. Colmenares, forrest rsugars were uncontrolled at home. We would like you to start with insulin at home. Please take the long acting insulin levemir 15U twice a day. We would like you to continue with the sliding scale for meal coverage. Please check your sugars before meals. If sugars over 100 follow insulin requirements below. Insulin sliding scale coverage: 100-150: no insulin needed 151-200: 2U 201-250: 4U 251-300: 6U 301-350: 8U 350-400: 10U >400: give 10U and call your MD Please follow up with your primary doctor with in one week. Please follow a low sugar/low carbohydrate diet. If you experience any worsening of symptoms please return tot he emergency room. Disposition: HOME This patient is new to me today: No Emergency Visit: Yes ED Registration Date: 11/25/16 Care time: The patient presented to the Emergency Department on the above date and was hospitalized for further evaluation of their emergent condition. Critical Care patient: No - Discharge Referral Referred to [id number] No <Beatriz Ortiz - Last Filed: 11/29/16 15:41>
[2016-11-29] MEDS ORDERED: INSULIN DETEMIR 100 UNITS/ML MDV SQ SCH (16:30)
[2016-11-29 18:32] VITALS: BP 138/76; PULSE 88; TEMP 98.8
== END 2016-11-29 18:47 | disposition home or self-care (01) | DRG 420 ==
LOC: JER 14:42 → JERBED 18:38 → JICU 19:20 → J5S 11-28 17:25
PROVIDERS: ADMIT Internal Medicine; ATTEND Internal Medicine
DX: E13.10 Other specified diabetes mellitus with ketoacidosis without coma (principal); Z79.84 Long term (current) use of oral hypoglycemic drugs; N17.9 Acute kidney failure, unspecified; K29.70 Gastritis, unspecified, without bleeding; R63.0 Anorexia; E87.6 Hypokalemia; E83.39 Other disorders of phosphorus metabolism; K59.00 Constipation, unspecified; E86.0 Dehydration; Z91.14 Patient's other noncompliance with medication regimen
CPT/HCPCS: 36415; 71010-TC; 80048; 80053; 80061; 81003; 82009; 82550; 82803; 83036; 83690; 83721; 83735; 84100; 84484; 85025; 85027; 85610; 85730; 93005; 93010; 99283-25; J1644

== ENCOUNTER 2017-01-21 19:38 | Inpatient (IN) | payer OTHER ==
[2017-01-21 19:52] VITALS: BMI 34.5
[2017-01-21] MEDS ORDERED: ACETAMINOPHEN 325 MG TABLET (FP) PO ONE (19:54)
--- NOTE | 2017-01-21 20:01 | PDOC ---
History of Present Illness - General History Source: Patient Exam Limitations: No Limitations - History of Present Illness Initial Comments: 01/21/17 20:21 The patient is a 66 year old female presenting with her family, with a significant past medical history of diabetes and HTN, who presents to the emergency department with cough, for the past 3 days, chest pain, headache and fever since yesterday. She describes her cough as dry in nature. She notes that her chest pain is onset when she coughs, ranging from mild to moderate, without radiation. She states that her fever is subjective. She denies any recent travel or sick contacts. She notes that she received her flu shot this year. She notes that her headache is mild, without radiation or modifying factors. The patient denies dizziness, chills, nausea, vomit, diarrhea and constipation. Denies dysuria, frequency, urgency and hematuria. Allergies: None Past surgical history: None reported Social history: No alcohol, tobacco or drug use reported <Jaspreet Reed - Last Filed: 01/21/17 20:21> <Roscoe Nunes - Last Filed: 01/21/17 22:22> - General Chief Complaint: Respiratory Stated Complaint: COUGH/CHEST PAIN/HEADACHE Time Seen by Provider: 01/21/17 20:01 Past History <aJspreet Reed - Last Filed: 01/21/17 20:21> - Past Medical History Anemia: No Asthma: No Cancer: No Cardiac Disorders: Yes CVA: No COPD: No CHF: No Dementia: No Diabetes: Yes GI Disorders: No Disorders: No HTN: Yes Hypercholesterolemia: No Liver Disease: No Seizures: No Thyroid Disease: No - Surgical History Abdominal Surgery: No Appendectomy: No Cardiac Surgery: No Cholecystectomy: No Gastric Stapling: No GI Surgery: No Lung Surgery: No Neurologic Surgery: No Orthopedic Surgery: No - Immunization History Immunization Up to Date: No - Psycho/Social/Smoking Cessation Hx Anxiety: No Suicidal Ideation: No Smoking History: Never smoked Have you smoked in the past 12 months: No Information on smoking cessation initiated: No Hx Alcohol Use: No Drug/Substance Use Hx: No Substance Use Type: None <Roscoe Nunes - Last Filed: 01/21/17 22:22> - Past Medical History Allergies/Adverse Reactions: Allergies Allergy/AdvReac Type Severity Reaction Status Date / Time No Known Allergies Allergy Verified 01/21/17 19:52 Home Medications: Ambulatory Orders Insulin (Levemir) [Levemir Vial] 15 units SQ BIDAC #1 vial 11/29/16 Insulin Sliding Scale [Novolog Vial Sliding Scale -] 1 vial SQ TIDAC #1 vial Miscellaneous Medical Supply [Glucometer Device] 1 each SQ ASDIR #1 kit Miscellaneous Medical Supply [Glucometer Test Strips #100] 1 each SQ ASDIR #1 box 11/29/16 Syringe,Safety with Needle,5Ml [Easy Touch Fliplock Syringe] 1 each MC ASDIR # 60 disp.syrin 11/29/16 Review of Systems - Review of Systems Constitutional: Yes: Chills, Fever HEENTM: No: Nose Congestion, Throat Swelling Respiratory: Yes: Cough, Shortness of Breath Cardiac (ROS): No: Chest Pain, Edema, Lightheadedness ABD/GI: No: Constipated, Diarrhea, Vomiting : No: Dysuria, Frequency All Other Systems: Reviewed and Negative <Roscoe Nunes - Last Filed: 01/21/17 22:22> *Physical Exam - Vital Signs Last Vital Signs Temp Pulse Resp BP Pulse Ox 102.6 F H 107 H 20 125/67 97 01/21/17 19:48 01/21/17 19:48 01/21/17 19:48 01/21/17 19:48 01/21/17 19:48 - Physical Exam Comments: 01/21/17 20:21 GENERAL: The patient is awake, alert, and fully oriented, in no acute distress. HEAD: Normal with no signs of trauma. EYES: Pupils equal, round and reactive to light, extraocular movements intact, sclera anicteric, conjunctiva clear with no pallor. ENT: Ears normal, nares patent, oropharynx clear without exudates. Moist mucous membranes. NECK: Normal range of motion, supple without lymphadenopathy, JVD, or masses. LUNGS: (+) Wheezing with cough, no expiratory wheezing, no prolonged respiration. Breath sounds equal. HEART: (+) Slightly regular and tachycardia, normal S1 and S2 without murmur or rub. ABDOMEN: Soft/nontender/nondistended. BS wnl. No guarding or rebound. No palpable masses. No hepatosplenomegaly. EXTREMITIES: (+) Trace pretibial edema bilaterally, no calf tenderness. Normal range of motion. No clubbing or cyanosis. No cords, Erythema. NEUROLOGICAL: Cranial nerves II through XII grossly intact. Normal speech, normal gait. PSYCH: Normal mood, normal affect. SKIN: Warm, Dry, normal turgor, no rashes or lesions noted. <Jaspreet Reed - Last Filed: 01/21/17 20:21> - Vital Signs Last Vital Signs Temp Pulse Resp BP Pulse Ox 102.6 F H 107 H 20 125/67 97 01/21/17 19:48 01/21/17 19:48 01/21/17 19:48 01/21/17 19:48 01/21/17 19:48 <Roscoe Nunes - Last Filed: 01/21/17 22:22> Heart Score/ECG Review #1 ECG reviewed & interpreted by me at: 19:46 General ECG Interpretation: Sinus Rhythm, Normal Rate (106, slight tachy), Normal Intervals, No acute ischemic changes <Roscoe Nunes - Last Filed: 01/21/17 22:22> ED Treatment Course - LABORATORY CBC & Chemistry Diagram: 01/21/17 20:00 01/21/17 20:00 - Medications Given in the ED: ED Medications Discontinued Medications Generic Name Dose Route Start Last Admin Trade Name Freq PRN Reason Stop Dose Admin Acetaminophen 650 mg 01/21/17 19:54 01/21/17 19:54 Tylenol - PO 01/21/17 19:55 650 mg NOW ONE Administration <Jaspreet Reed - Last Filed: 01/21/17 20:21> - LABORATORY CBC & Chemistry Diagram: 01/21/17 20:00 01/21/17 21:30 - Medications Given in the ED: ED Medications Discontinued Medications Generic Name Dose Route Start Last Admin Trade Name Freq PRN Reason Stop Dose Admin Acetaminophen 650 mg 01/21/17 19:54 01/21/17 19:54 Tylenol - PO 01/21/17 19:55 650 mg NOW ONE Administration <Roscoe Nunes - Last Filed: 01/21/17 22:22> Medical Decision Making - Medical Decision Making 01/21/17 20:14 A portion of this note was documented by scribe services under my direction. I have reviewed the details of the note, within reason, and agree with the documentation with the following case summary and management plan written by me. 66-year-old female diabetic presents with 2 days of cough with fever/chills. Cough is nonproductive, but associated with some chest discomfort and no shortness of breath. Positive subjective fever but not measured at home, no night sweats. No other URI symptoms of nasal congestion, no vomiting or diarrhea , no urinary complaints. No known sick contacts, no recent travel, did have her influenza vaccine in the fall, no history of pneumonia. Per report, glucose levels have been at her baseline. Febrile, tachycardic, O2 sat 97% on room air Very well-appearing, seated in chair without retinae respiratory distress Oropharynx is clear Lung sounds some wheezing while coughing, otherwise no focally decreased breath sounds or prolonged expiration or accessory muscle use 66-year-old female with cough and fever. Rule out pneumonia, question bronchitis , question influenza. Afebrile with slight tachycardia, otherwise well- appearing. Sepsis protocol initiated given vital signs Will trial nebulizer, Tylenol for fever, check chest x-ray Influenza swab Reassess 01/21/17 21:36 wbc 9.3 with normal diff, influenza negative, UA negative. Lactate 1.2. On my preliminary review of the CXR, there is a density in the RLL, better seen on lateral film. Cxs sent, will treat empirically for CAP, admit for obs monitoring. 01/21/17 22:21 chem wnl, glucose 138 without AG elevation, normal Cr. receiving abx, agrees with admission plan. accepted by Dr. Bates for inpatient med/surg. <Roscoe Nunes - Last Filed: 01/21/17 22:22> *DC/Admit/Observation/Transfer - Attestations Scribe Attestion: 01/21/17 20:21 Documentation prepared by Jaspreet Reed, acting as director of medical services for Roscoe Nunes MD <Jaspreet Reed - Last Filed: 01/21/17 20:21> - Discharge Dispostion Admit: Yes <Roscoe Nunes - Last Filed: 01/21/17 22:22> Diagnosis at time of Disposition: Fever Qualifiers: Fever type: unspecified Qualified Code(s): R50.9 - Fever, unspecified Right lower lobe pneumonia Qualifiers: Pneumonia type: due to unspecified organism Qualified Code(s): J18.1 - Lobar pneumonia, unspecified organism - Discharge Dispostion Condition at time of disposition: Fair - Referrals Referrals: STAFF,NOT ON [Primary Care Provider] -
[2017-01-21] MEDS ORDERED: SODIUM CHLORIDE 1,000 ML IV ONE (20:02)
[2017-01-21] MEDS ORDERED: SODIUM CHLORIDE 0.9% 1000 ML INFUS.BAG IV PRN (20:02)
[2017-01-21] MEDS ORDERED: ALBUTEROL SO4 2.5/IPRATROPIUM 0.5 INH SOL 3 ML VIAL.NEB. NEB ONE ×2 (20:13→20:20)
[2017-01-21 20:22] LABS: BASOPHIL 0.4 % (0-2.0); EOSINOPHIL 2.2 % (0-4.5); MCH 22.4 pg (25.7-33.7); MCHC 32.5 g/dl (32.0-36.0); MEAN CELL VOLUME 68.9 fl (80-96); MEAN PLT VOLUME 8.2 fl (7.5-11.1); NEUTROPHILS 55.3 % (42.8-82.8); PLATELET COUNT 317 K/MM3 (134-434); RDW 13.8 % (11.6-15.6); WHITE BLOOD COUNT 9.3 K/mm3 (4.0-10.0)
[2017-01-21 20:24] LABS: VENOUS BLOOD GAS HCO3 25.2 meq/L (19-25); VENOUS PH 7.43 (7.32-7.42)
[2017-01-21 20:33] LABS: URINE APPEARANCE CLEAR; URINE BILIRUBIN NEGATIVE (NEGATIVE); URINE COLOR STRAW; URINE GLUCOSE (UA) NEGATIVE (NEGATIVE); URINE KETONE NEGATIVE (NEGATIVE); URINE LEUK ESTERASE NEGATIVE (NEGATIVE); URINE NITRITE NEGATIVE (NEGATIVE); URINE PROTEIN NEGATIVE (NEGATIVE); URINE UROBILINOGEN NEGATIVE E.U./dl (0.2-1.0)
[2017-01-21 20:36] LABS: INR 1.06 (0.82-1.09); PROTHROMBIN TIME (PATIENT) 11.7 SEC (9.98-11.88)
[2017-01-21 20:37] LABS: URINE BLOOD 1+ (NEGATIVE)
[2017-01-21 20:38] LABS: ACTIVATED PTT 27.9 SECONDS (26.9-34.4)
[2017-01-21 20:39] LABS: URINE RBC 1 /hpf (0-3); URINE WBC 1 /hpf (3-5)
[2017-01-21] MEDS ORDERED: AZITHROMYCIN IVPB 500 MG in DEXTROSE 5%-WATER - 250 ML IVPB ONE (21:32)
[2017-01-21] MEDS ORDERED: CEFTRIAXONE 1 GM in DEXTROSE 5%-WATER - 50 ML IVPB ONE (21:32)
[2017-01-21] MEDS ORDERED: CEFTRIAXONE 50 ML ONE (22:01)
[2017-01-21] MEDS ORDERED: AZITHROMYCIN IVPB 250 ML IVPB ONE (22:01)
[2017-01-21 22:08] LABS: ALBUMIN 3.4 g/dl (3.4-5.0); ANION GAP 11 (8-16); BILIRUBIN,TOTAL 0.3 mg/dL (0.2-1.0); CALCIUM 7.8 mg/dL (8.5-10.1); CO2 25 mmol/L (21-32); COCKROFT - GAULT 96.05; CREATININE 0.7 mg/dL (0.55-1.02); GLUCOSE,RANDOM 138 mg/dL (74-106); SGOT/AST 25 U/L (15-37); SGPT/ALT 24 U/L (12-78); TOT PROT 6.7 g/dl (6.4-8.2)
[2017-01-21 22:09] LABS: ALK PHOS 63 U/L (45-117)
[2017-01-21] MEDS ORDERED: ONDANSETRON 4 MG/2 ML VIAL IVPB PRN (22:21)
[2017-01-21 22:23] LABS: TROPONIN I < 0.02 ng/ml (0.00-0.05)
--- NOTE | 2017-01-21 22:34 | HP ---
Admitting History and Physical - Admission Chief Complaint: cough History of Present Illness: 66 yo obese f w hx of DM who presents to the ER for cough, fever and found to have a ? RLL PNA. Patient's son at bedside and provided hx. He states coughing started thurs. He reports cough associated CP and fever(unclear how high). She reports itchy throat. He denies sob, syncope, heart palps, nausea/vomiting/ diarrhea/chills, sneezing, nasal congestion, weight changes. He denies sick contacts or recent travel. She was given CTX and Azithromycin in the ER. Her Temp was 102, and she was tachycardic. PAST MEDICAL HISTORY: Diabetes Mellitus PAST SURGICAL HISTORY: None Social History: Smoking: Denies Alcohol: Denies Drugs: Denies Ros neg except for HPI Pe: Hent-at/nc, michael, neck supple, trachea mid-line, no pharyngeal exudates, no lymphadenopathy, no rhinorrhea Gen- in nad, alert resp- +dry cough, no rales, no ronchi, no wheeze, no cyanosis Cards- s1s2 heard, tachy, no JVD, no leg edema Neuro- cn2-12 grossly intact, no seizures, no facial droop Musk- normal bue/ble arom Psych- cooperative, no agitation Gi- obese abd, no rigidity, no guarding, no rebound SKin- no erythema prob list ? RLL pna DM Cough Dm hypokalemia Imaging: Cxr- ? density on lateral view a/p- 66 yo f w hx of DM who presents to the ER for cough, fever and found to have a ? RLL PNA and admitted for eval of their emergent condition 1 ? RLL PNA Given CTX and Azithromycin in ER Continue ABX, nebs, cough syrup, supp O2 FU BC FU final cxr results 2. Meets Sirs criteria: fever tachy Cont ABX 3. DM SSI Continue home meds FU a1c 4. hypokalemia replete as needed 5. Cough likely 2/2 PNA v URI Prn Cough syrup DVT prophy scds, oob, hep sq fen ivf, diabetic diet Dispo- admitted for ? PNA History Source: Patient, Family Member Limitations to Obtaining History: No Limitations, Language Barrier - Past Medical History Endocrine: Yes: Diabetes Mellitus - Past Surgical History Past Surgical History: Yes: None - Smoking History Smoking history: Never smoked Have you smoked in the past 12 months: No - Alcohol/Substance Use Hx Alcohol Use: No History of Substance Use: reports: None - Social History ADL: Independent History of Recent Travel: No Home Medications - Allergies Allergies/Adverse Reactions: Allergies Allergy/AdvReac Type Severity Reaction Status Date / Time No Known Allergies Allergy Verified 01/21/17 19:52 - Home Medications Home Medications: Ambulatory Orders Insulin (Levemir) [Levemir Vial] 15 units SQ BIDAC #1 vial 11/29/16 Insulin Sliding Scale [Novolog Vial Sliding Scale -] 1 vial SQ TIDAC #1 vial Miscellaneous Medical Supply [Glucometer Device] 1 each SQ ASDIR #1 kit Miscellaneous Medical Supply [Glucometer Test Strips #100] 1 each SQ ASDIR #1 box 11/29/16 Syringe,Safety with Needle,5Ml [Easy Touch Fliplock Syringe] 1 each MC ASDIR # 60 disp.syrin 11/29/16 Physical Examination Vital Signs: Vital Signs Temperature 102.6 F H 01/21/17 19:48 Pulse Rate 107 H 01/21/17 19:48 Respiratory Rate 20 01/21/17 19:48 Blood Pressure 125/67 01/21/17 19:48 O2 Sat by Pulse Oximetry (%) 98 01/21/17 20:00 Labs: CBC, BMP 01/21/17 20:00 01/21/17 21:30 Visit type - Emergency Visit Emergency Visit: Yes Care time: The patient presented to the Emergency Department on the above date and was hospitalized for further evaluation of their emergent condition. - New Patient This patient is new to me today: Yes Date on this admission: 01/21/17 - Critical Care Critical Care patient: No
[2017-01-21] MEDS ORDERED: SODIUM CHLORIDE 1,000 ML IV SCH (22:45)
[2017-01-21] MEDS ORDERED: POTASSIUM CHLORIDE 20 MEQ PREMIX IVPB 100 ML IVPB SCH (22:45)
[2017-01-21] MEDS ORDERED: POTASSIUM CHLORIDE TABS 20 MEQ TABLET.ER (FP) PO ONE (23:09)
[2017-01-22] MEDS: ACETAMINOPHEN 325 MG TABLET (FP) PO PRN ×3 (05:27→22:12)
[2017-01-22] MEDS ORDERED: ALBUTEROL SO4 2.5/IPRATROPIUM 0.5 INH SOL 3 ML VIAL.NEB. NEB SCH (06:00)
[2017-01-22] MEDS: INSULIN DETEMIR 100 UNITS/ML MDV SQ SCH ×3 (06:55→21:53)
[2017-01-22] MEDS: guaiFENesin 200 MG/10 ML 10 ML UNIT-DOSE CUPS PO PRN ×3 (06:56→18:52)
[2017-01-22] MEDS: INSULIN SLIDING SCALE (NOVOLOG) 1 VIAL SQ SCH ×4 (06:57→21:54)
[2017-01-22 08:23] LABS: MCH 22.8 pg (25.7-33.7); MCHC 33.3 g/dl (32.0-36.0); MEAN CELL VOLUME 68.4 fl (80-96); MEAN PLT VOLUME 8.3 fl (7.5-11.1); PLATELET COUNT 268 K/MM3 (134-434); RDW 13.8 % (11.6-15.6); WHITE BLOOD COUNT 5.5 K/mm3 (4.0-10.0)
[2017-01-22 08:46] LABS: ALBUMIN 3.5 g/dl (3.4-5.0); ALK PHOS 70 U/L (45-117); ANION GAP 12 (8-16); BILIRUBIN,TOTAL 0.4 mg/dL (0.2-1.0); CALCIUM 8.6 mg/dL (8.5-10.1); CO2 25 mmol/L (21-32); COCKROFT - GAULT 96.9085; CREATININE 0.7 mg/dL (0.55-1.02); GLUCOSE,RANDOM 124 mg/dL (74-106); SGOT/AST 29 U/L (15-37); SGPT/ALT 26 U/L (12-78); TOT PROT 7.1 g/dl (6.4-8.2)
[2017-01-22] MEDS: cefTRIAXone 1 GM/50 ML BAG (PRE-DOCKED) IVPB SCH (09:31)
[2017-01-22] MEDS ORDERED: CEFTRIAXONE 1 GM in DEXTROSE 5%-WATER - 50 ML IVPB SCH (10:00)
[2017-01-22] MEDS ORDERED: AZITHROMYCIN IVPB 500 MG in DEXTROSE 5%-WATER - 250 ML IVPB SCH (10:00)
[2017-01-22 10:10] LABS: ANISOCYTOSIS 2+; HYPOCHROMIA 2+; MICROCYTOSIS 2+; TARGET CELLS 3+; TEAR DROP CELLS FEW
[2017-01-22] MEDS: HEPARIN NA (PORCINE) 5,000 UNITS/ML 1ML VIAL SQ SCH ×2 (10:36→21:53)
[2017-01-22] MEDS: AZITHROMYCIN IVPB 500 MG/250 ML D5W PRE-DOCKED IVPB SCH (10:36)
--- NOTE | 2017-01-22 10:53 | EKG ---
Test Reason : Blood Pressure : / mmHG Vent. Rate : 106 BPM Atrial Rate : 106 BPM P-R Int : 164 ms QRS Dur : 070 ms QT Int : 342 ms P-R-T Axes : 032 018 058 degrees QTc Int : 454 ms SINUS TACHYCARDIA NONSPECIFIC T WAVE ABNORMALITY ABNORMAL ECG WHEN COMPARED WITH ECG OF 25-NOV-2016 15:06, NO SIGNIFICANT CHANGE WAS FOUND Confirmed by MD ANU, MARIPOSA ([id number]) on 01/22/2017 10:53:15 AM Referred By: Confirmed By:MARIPOSA BRENNAN MD
--- NOTE | 2017-01-22 10:58 | EKG ---
Test Reason : Blood Pressure : / mmHG Vent. Rate : 081 BPM Atrial Rate : 081 BPM P-R Int : 184 ms QRS Dur : 068 ms QT Int : 388 ms P-R-T Axes : 040 028 066 degrees QTc Int : 450 ms SINUS RHYTHM WITH OCCASIONAL PREMATURE VENTRICULAR COMPLEXES OTHERWISE NORMAL ECG Confirmed by MD ANU, MARIPOSA ([id number]) on 01/22/2017 10:58:32 AM Referred By: SEVERINO MCKAY Confirmed By:MARIPOSA BRENNAN MD
[2017-01-22 11:39] LABS: TROPONIN I < 0.02 ng/ml (0.00-0.05)
[2017-01-22] MEDS: ALBUTEROL SO4 2.5/IPRATROPIUM 0.5 INH SOL 3 ML VIAL.NEB. NEB SCH ×3 (13:55→23:45)
--- NOTE | 2017-01-22 14:56 | PN ---
Progress Note (short form) - Note Progress Note: Subjective: the patient was seen and examined at the bedside, she speaks only creole, waiting for her son to come. She states pain and is pointing to her throat. Attempt to exam throat with tongue depressor, but the patient would not let me. rapid strept ordered if the patient allows. Current Medications Generic Name Dose Route Start Last Admin Trade Name Freq PRN Reason Stop Dose Admin Acetaminophen 650 mg 01/21/17 22:21 01/22/17 05:27 Tylenol - PO 650 mg Q4H PRN Administration FEVER OR PAIN Albuterol/Ipratropium 1 amp 01/22/17 10:45 01/22/17 13:55 Duoneb - NEB 1 amp QIDR NAMRATA Administration Azithromycin 500 mg 01/22/17 10:00 01/22/17 10:36 Zithromax 500mg Ivpb (Pre-Docked) IVPB 500 mg DAILY NAMRATA Administration Ceftriaxone Sodium 1 gm 01/22/17 10:00 01/22/17 09:31 Rocephin 1gm Ivpb (Pre-Docked) IVPB 1 gm DAILY NAMRATA Administration Guaifenesin 10 ml 01/21/17 22:26 01/22/17 12:15 Robitussin - PO 10 ml Q6H PRN Administration COUGH Heparin Sodium (Porcine) 5,000 unit 01/22/17 10:00 01/22/17 10:36 Heparin - SQ 5,000 unit BID NAMRATA Administration Insulin Aspart 1 vial 01/22/17 07:00 01/22/17 11:46 Novolog Vial Sliding Scale - SQ Not Given ACHS [facility] Protocol Insulin Detemir 15 units 01/22/17 07:00 01/22/17 06:55 Levemir Vial SQ 15 units BIDAC NAMRATA Administration Ondansetron HCl 4 mg 01/21/17 22:21 Zofran Injection IVPB Q4H PRN NAUSEA AND/OR VOMITING Sodium Chloride 770 ml 01/21/17 20:02 Normal Saline - IV Q20M PRN MAP<65mm Hg OR SBP <90 Objective: Vital Signs Period Temp Pulse Resp BP Sys/Zeng Pulse Ox Last 24 Hr 98.3 F-102.6 F 82-107 18-20 110-131/42-73 94-98 Physical Exam: General: NAD Lungs: CTA bilaterally, + cough Heart: RRR, S1S2 Abd: Soft, non-tender, non-distended. Normoactive bowel sounds Ext: Warm, well-perfused. 2+ DP/PT bilaterally Neuro: Facial symmetry. Unable to assess CN due to language barrier CBCD WBC 5.5 K/mm3 (4.0-10.0) D 01/22/17 07:00 RBC 5.53 M/mm3 (3.60-5.2) H 01/22/17 07:00 Hgb 12.6 GM/dL (10.7-15.3) 01/22/17 07:00 Hct 37.9 % (32.4-45.2) 01/22/17 07:00 MCV 68.4 fl (80-96) L 01/22/17 07:00 MCHC 33.3 g/dl (32.0-36.0) 01/22/17 07:00 RDW 13.8 % (11.6-15.6) 01/22/17 07:00 Plt Count 268 K/MM3 (134-434) 01/22/17 07:00 MPV 8.3 fl (7.5-11.1) 01/22/17 07:00 CMP Sodium 143 mmol/L (136-145) 01/22/17 07:00 Potassium 4.2 mmol/L (3.5-5.1) D 01/22/17 07:00 Chloride 106 mmol/L (98-107) 01/22/17 07:00 Carbon Dioxide 25 mmol/L (21-32) 01/22/17 07:00 Anion Gap 12 (8-16) 01/22/17 07:00 BUN 5 mg/dL (7-18) L 01/22/17 07:00 Creatinine 0.7 mg/dL (0.55-1.02) 01/22/17 07:00 Creat Clearance w eGFR > 60 (>60) 01/22/17 07:00 Random Glucose 124 mg/dL (74-106) H 01/22/17 07:00 Calcium 8.6 mg/dL (8.5-10.1) 01/22/17 07:00 Total Bilirubin 0.4 mg/dL (0.2-1.0) D 01/22/17 07:00 AST 29 U/L (15-37) 01/22/17 07:00 ALT 26 U/L (12-78) 01/22/17 07:00 Alkaline Phosphatase 70 U/L (45-117) 01/22/17 07:00 Total Protein 7.1 g/dl (6.4-8.2) 01/22/17 07:00 Albumin 3.5 g/dl (3.4-5.0) 01/22/17 07:00 CARDIAC ENZYMES Creatine Kinase 122 IU/L (26-192) 01/22/17 11:04 Troponin I < 0.02 ng/ml (0.00-0.05) 01/22/17 11:04 Microbiology 01/21/17 20:00 Nasopharyngeal Swab Respiratory Virus Panel - Preliminary 01/22/17 00:02 Urine For Antigen Detection Legionella Antigen - Final 01/22/17 00:02 Urine For Antigen Detection Streptococcus pneumoniae Antigen (M - Final 01/21/17 20:00 Nasopharyngeal Swab Influenza Types A,B Antigen (ALBA) - Final 01/21/17 20:00 Nasopharyngeal Swab - Final Assessment: This is a 66 year old creole speaking female with PMHx of DM who presented to the ED with cough, fever, and a sore throat. Plan: 1) ID: Sepsis 2/2 to suspected community acquired pneumonia - Tmax 102.6 on admission - Legionella Ag negative - Influenza A&B negative - Group A strep rapid Ag pending - Respiratory virus panel negative - Continue Ceftriaxone - Continue Azithromycin 2) Endocrine: DM - Levemir 10u sq bid - ISS ACHS - BGM ACHS 3) F/E/N: - Diabetic diet - Monitor electrolytes 4) Prophylaxis: - Heparin 5,000u sq bid - OOB ambulating 5) Dispo: - Requires continued inpatient care CODE STATUS: FULL CODE Visit type - Emergency Visit Emergency Visit: Yes ED Registration Date: 01/21/17 Care time: The patient presented to the Emergency Department on the above date and was hospitalized for further evaluation of their emergent condition. - New Patient This patient is new to me today: Yes Date on this admission: 01/22/17 - Critical Care Critical Care patient: No
[2017-01-22] MEDS ORDERED: INSULIN DETEMIR 100 UNITS/ML MDV SQ ONE (17:57)
[2017-01-22] MEDS ORDERED: INSULIN (NOVOLOG) ASPART 100 UNITS/ML 10ML VIAL ONE (17:57)
[2017-01-23] MEDS: INSULIN SLIDING SCALE (NOVOLOG) 1 VIAL SQ SCH ×4 (06:17→22:28)
[2017-01-23] MEDS: ALBUTEROL SO4 2.5/IPRATROPIUM 0.5 INH SOL 3 ML VIAL.NEB. NEB SCH ×3 (06:20→17:38)
[2017-01-23] MEDS: INSULIN DETEMIR 100 UNITS/ML MDV SQ SCH ×2 (06:20→22:25)
[2017-01-23 08:03] LABS: MCH 22.8 pg (25.7-33.7); MCHC 32.9 g/dl (32.0-36.0); MEAN CELL VOLUME 69.2 fl (80-96); PLATELET COUNT 294 K/MM3 (134-434); RDW 13.8 % (11.6-15.6); WHITE BLOOD COUNT 9.3 K/mm3 (4.0-10.0)
[2017-01-23] MEDS: cefTRIAXone 1 GM/50 ML BAG (PRE-DOCKED) IVPB SCH (09:53)
[2017-01-23] MEDS: HEPARIN NA (PORCINE) 5,000 UNITS/ML 1ML VIAL SQ SCH ×2 (09:53→22:25)
[2017-01-23] MEDS: guaiFENesin 200 MG/10 ML 10 ML UNIT-DOSE CUPS PO PRN ×3 (09:55→23:50)
[2017-01-23] MEDS: AZITHROMYCIN IVPB 500 MG/250 ML D5W PRE-DOCKED IVPB SCH (10:27)
[2017-01-23] MEDS ORDERED: BENZOCAINE/MENTH/CETYLPYRD CL 1 EACH LOZENGE MM PRN (12:09)
--- NOTE | 2017-01-23 12:20 | PN ---
Progress Note (short form) - Note Progress Note: Subjective: the patient was seen and examined at the bedside, she is complaining of throat pain, again would not allow me to examine her throat. Current Medications Generic Name Dose Route Start Last Admin Trade Name Freq PRN Reason Stop Dose Admin Acetaminophen 650 mg 01/21/17 22:21 01/22/17 05:27 Tylenol - PO 650 mg Q4H PRN Administration FEVER OR PAIN Albuterol/Ipratropium 1 amp 01/22/17 10:45 01/22/17 13:55 Duoneb - NEB 1 amp QIDR NAMRATA Administration Azithromycin 500 mg 01/22/17 10:00 01/22/17 10:36 Zithromax 500mg Ivpb (Pre-Docked) IVPB 500 mg DAILY NAMRATA Administration Ceftriaxone Sodium 1 gm 01/22/17 10:00 01/22/17 09:31 Rocephin 1gm Ivpb (Pre-Docked) IVPB 1 gm DAILY NAMRATA Administration Guaifenesin 10 ml 01/21/17 22:26 01/22/17 12:15 Robitussin - PO 10 ml Q6H PRN Administration COUGH Heparin Sodium (Porcine) 5,000 unit 01/22/17 10:00 01/22/17 10:36 Heparin - SQ 5,000 unit BID NAMRATA Administration Insulin Aspart 1 vial 01/22/17 07:00 01/22/17 11:46 Novolog Vial Sliding Scale - SQ Not Given ACHS [facility] Protocol Insulin Detemir 15 units 01/22/17 07:00 01/22/17 06:55 Levemir Vial SQ 15 units BIDAC NAMRATA Administration Ondansetron HCl 4 mg 01/21/17 22:21 Zofran Injection IVPB Q4H PRN NAUSEA AND/OR VOMITING Sodium Chloride 770 ml 01/21/17 20:02 Normal Saline - IV Q20M PRN MAP<65mm Hg OR SBP <90 Objective: Vital Signs Period Temp Pulse Resp BP Sys/Zeng Pulse Ox Last 24 Hr 98.3 F-102.6 F 82-107 18-20 110-131/42-73 94-98 Physical Exam: General: NAD HEENT: No cervical lymphadenopathy. No tonsilar, auricle, preauricle lymphadenopathy Lungs: CTA bilaterally, + cough Heart: RRR, S1S2 Abd: Soft, non-tender, non-distended. Normoactive bowel sounds Ext: Warm, well-perfused. 2+ DP/PT bilaterally Neuro: Facial symmetry. Unable to assess CN due to language barrier CBCD WBC 9.3 K/mm3 (4.0-10.0) D 01/23/17 07:15 RBC 5.36 M/mm3 (3.60-5.2) H 01/23/17 07:15 Hgb 12.2 GM/dL (10.7-15.3) 01/23/17 07:15 Hct 37.1 % (32.4-45.2) 01/23/17 07:15 MCV 69.2 fl (80-96) L 01/23/17 07:15 MCHC 32.9 g/dl (32.0-36.0) 01/23/17 07:15 RDW 13.8 % (11.6-15.6) 01/23/17 07:15 Plt Count 294 K/MM3 (134-434) 01/23/17 07:15 MPV 8.0 fl (7.5-11.1) 01/23/17 07:15 CMP Sodium 143 mmol/L (136-145) 01/22/17 07:00 Potassium 4.2 mmol/L (3.5-5.1) D 01/22/17 07:00 Chloride 106 mmol/L (98-107) 01/22/17 07:00 Carbon Dioxide 25 mmol/L (21-32) 01/22/17 07:00 Anion Gap 12 (8-16) 01/22/17 07:00 BUN 5 mg/dL (7-18) L 01/22/17 07:00 Creatinine 0.7 mg/dL (0.55-1.02) 01/22/17 07:00 Creat Clearance w eGFR > 60 (>60) 01/22/17 07:00 Random Glucose 124 mg/dL (74-106) H 01/22/17 07:00 Calcium 8.6 mg/dL (8.5-10.1) 01/22/17 07:00 Total Bilirubin 0.4 mg/dL (0.2-1.0) D 01/22/17 07:00 AST 29 U/L (15-37) 01/22/17 07:00 ALT 26 U/L (12-78) 01/22/17 07:00 Alkaline Phosphatase 70 U/L (45-117) 01/22/17 07:00 Total Protein 7.1 g/dl (6.4-8.2) 01/22/17 07:00 Albumin 3.5 g/dl (3.4-5.0) 01/22/17 07:00 CARDIAC ENZYMES Creatine Kinase 122 IU/L (26-192) 01/22/17 11:04 Troponin I < 0.02 ng/ml (0.00-0.05) 01/22/17 11:04 Microbiology 01/22/17 16:00 Throat Group A Strep Rapid Antigen - Final 01/21/17 20:00 Urine - Urine Clean Catch Urine Culture - Final NO GROWTH OBTAINED 01/21/17 20:00 Blood - Peripheral Venous Blood Culture - Preliminary NO GROWTH OBTAINED AFTER 24 HOURS, INCUBATION TO CONTINUE FOR 4 DAYS. 01/21/17 20:00 Blood - Peripheral Venous Blood Culture - Preliminary NO GROWTH OBTAINED AFTER 24 HOURS, INCUBATION TO CONTINUE FOR 4 DAYS. 01/21/17 20:00 Nasopharyngeal Swab Respiratory Virus Panel - Preliminary 01/22/17 00:02 Urine For Antigen Detection Legionella Antigen - Final 01/22/17 00:02 Urine For Antigen Detection Streptococcus pneumoniae Antigen (M - Final 01/21/17 20:00 Nasopharyngeal Swab Influenza Types A,B Antigen (ALBA) - Final 01/21/17 20:00 Nasopharyngeal Swab - Final Assessment: This is a 66 year old creole speaking female with PMHx of DM who presented to the ED with cough, fever, and a sore throat. Plan: 1) ID: Sepsis 2/2 to suspected community acquired pneumonia - Tmax 102.6 on admission - Legionella Ag negative - Influenza A&B negative - Group A strep rapid Ag negative - Respiratory virus panel negative - Continue Ceftriaxone - Continue Azithromycin 2) Endocrine: DM - Levemir 10u sq bid - ISS ACHS - BGM ACHS 3) F/E/N: - Diabetic diet - Monitor electrolytes 4) Prophylaxis: - Heparin 5,000u sq bid - OOB ambulating 5) Dispo: - Requires continued inpatient care CODE STATUS: FULL CODE Visit type - Emergency Visit Emergency Visit: Yes ED Registration Date: 01/21/17 Care time: The patient presented to the Emergency Department on the above date and was hospitalized for further evaluation of their emergent condition. - New Patient This patient is new to me today: No - Critical Care Critical Care patient: No
[2017-01-24] MEDS: ALBUTEROL SO4 2.5/IPRATROPIUM 0.5 INH SOL 3 ML VIAL.NEB. NEB SCH ×3 (06:40→11:50)
[2017-01-24] MEDS: INSULIN SLIDING SCALE (NOVOLOG) 1 VIAL SQ SCH ×2 (06:41→12:22)
[2017-01-24] MEDS: INSULIN DETEMIR 100 UNITS/ML MDV SQ SCH (06:42)
[2017-01-24] MEDS: guaiFENesin 200 MG/10 ML 10 ML UNIT-DOSE CUPS PO PRN (10:08)
[2017-01-24] MEDS: ACETAMINOPHEN 325 MG TABLET (FP) PO PRN (10:08)
[2017-01-24] MEDS: HEPARIN NA (PORCINE) 5,000 UNITS/ML 1ML VIAL SQ SCH (10:13)
[2017-01-24] MEDS: cefTRIAXone 1 GM/50 ML BAG (PRE-DOCKED) IVPB SCH (10:14)
--- NOTE | 2017-01-24 10:23 | DS ---
Physical Examination Vital Signs: Vital Signs Temperature 98.1 F 01/24/17 06:00 Pulse Rate 76 01/24/17 06:00 Respiratory Rate 20 01/24/17 06:00 Blood Pressure 139/75 01/24/17 06:00 O2 Sat by Pulse Oximetry (%) 98 01/23/17 21:00 Labs: CBC, BMP 01/23/17 07:15 01/22/17 07:00 Discharge Summary Reason For Visit: RIGHT LOWER LOBE PNEUMONIA Current Active Problems Fever (Acute) Right lower lobe pneumonia (Acute) Condition: Improved - Instructions Diet, Activity, Other Instructions: Please return to the ED with new, persistent, or worsening symptoms. Please follow-up with providers as indicated. Referrals: Jonny Mora MD [Staff Physician] - (Please follow-up with your pcp within 1 week. ) Disposition: HOME - Home Medications Comprehensive Discharge Medication List: Ambulatory Orders Insulin Sliding Scale [Novolog Vial Sliding Scale -] 1 vial SQ TIDAC #1 vial Miscellaneous Medical Supply [Glucometer Device] 1 each SQ ASDIR #1 kit Miscellaneous Medical Supply [Glucometer Test Strips #100] 1 each SQ ASDIR #1 box 11/29/16 Syringe,Safety with Needle,5Ml [Easy Touch Fliplock Syringe] 1 each MC ASDIR # 60 disp.syrin 11/29/16 Acetaminophen [Tylenol .Regular Strength -] 650 mg PO Q4H PRN #0 tablet Cefuroxime Axetil [Ceftin -] 500 mg PO Q12H #14 tablet 01/24/17 Guaifenesin [Robitussin -] 10 ml PO Q6H PRN #1 bot 01/24/17 Insulin (Levemir) [Levemir Vial] 10 units SQ BID@0700,2200 #1 ml 01/24/17
[2017-01-24 16:08] VITALS: BP 131/81; PULSE 86; TEMP 97.8
== END 2017-01-24 17:24 | disposition home or self-care (01) | DRG 139 ==
LOC: JER 19:38 → SUPCPDRO 19:38 → JERBED 22:22 → J5S 23:25
PROVIDERS: ADMIT Internal Medicine; ATTEND Registered Nurse
DX: J18.9 Pneumonia, unspecified organism (principal); E11.9 Type 2 diabetes mellitus without complications; I10 Essential (primary) hypertension; E87.6 Hypokalemia; Z79.4 Long term (current) use of insulin
CPT/HCPCS: 36415; 71020-TC; 80053; 81003; 81015; 82550; 82803; 83036; 83605; 84484; 85025; 85027; 85610; 85730; 86850; 86900; 86901; 87040; 87070; 87086; 87254; 87430; 87804; 87899; 93005; 93010; 93971-TC; 94640; 99285-25; J1644

== ENCOUNTER 2017-10-05 10:59 | Emergency (ER) | payer OTHER ==
[2017-10-05 11:04] VITALS: BP 153/83; PULSE 84; TEMP 98.3; BMI 34.3
--- NOTE | 2017-10-05 12:15 | PDOC ---
History of Present Illness - General Chief Complaint: Cold Symptoms Stated Complaint: COUGH, RT LEG PAIN Time Seen by Provider: 10/05/17 11:48 History Source: Patient Exam Limitations: No Limitations - History of Present Illness Initial Comments: 10/05/17 11:57 c/o left knee pain for 2 weeks after a slip and fall also with cough for 2 weeks no fever no chills no swelling to lower legs PMD at [address] Past History - Past Medical History Allergies/Adverse Reactions: Allergies Allergy/AdvReac Type Severity Reaction Status Date / Time No Known Allergies Allergy Verified 10/05/17 11:01 Home Medications: Ambulatory Orders Insulin Sliding Scale [Novolog Vial Sliding Scale -] 1 vial SQ TIDAC #1 vial Miscellaneous Medical Supply [Glucometer Device] 1 each SQ ASDIR #1 kit Miscellaneous Medical Supply [Glucometer Test Strips #100] 1 each SQ ASDIR #1 box 11/29/16 Syringe,Safety with Needle,5Ml [Easy Touch Fliplock Syringe] 1 each MC ASDIR # 60 disp.syrin 11/29/16 Acetaminophen [Tylenol .Regular Strength -] 650 mg PO Q4H PRN #0 tablet Albuterol Sulfate Inhaler - [Ventolin HFA Inhaler -] 1 - 2 inh PO Q4H PRN #1 inhaler 01/24/17 Cefuroxime Axetil [Ceftin -] 500 mg PO Q12H #14 tablet 01/24/17 Guaifenesin [Robitussin -] 10 ml PO Q6H PRN #1 bot 01/24/17 Insulin (Levemir) [Levemir Vial] 10 units SQ BID@0700,2200 #1 ml 01/24/17 Benzonatate [Tessalon Pearls -] 100 mg PO TID PRN #21 capsule 10/05/17 Anemia: No Asthma: No Cancer: No Cardiac Disorders: Yes CVA: No COPD: No CHF: No DVT: No Dementia: No Diabetes: Yes GI Disorders: No Disorders: No HTN: Yes Hypercholesterolemia: No Liver Disease: No Seizures: No Thyroid Disease: No - Surgical History Abdominal Surgery: No Appendectomy: No Cardiac Surgery: No Cholecystectomy: No Gastric Stapling: No GI Surgery: No Lung Surgery: No Neurologic Surgery: No Orthopedic Surgery: No - Immunization History Immunization Up to Date: No - Suicide/Smoking/Psychosocial Hx Smoking History: Never smoked Have you smoked in the past 12 months: No Information on smoking cessation initiated: No Hx Alcohol Use: No Drug/Substance Use Hx: No Substance Use Type: None Review of Systems - Review of Systems Able to Perform ROS?: Yes Is the patient limited Turkmen proficient: No Constitutional: No: Symptoms Reported HEENTM: No: Symptoms Reported Respiratory: Yes: Cough Cardiac (ROS): No: Symptoms Reported ABD/GI: No: Symptoms Reported : No: Symptoms Reported Musculoskeletal: Yes: Symptoms Reported *Physical Exam - Vital Signs Last Vital Signs Temp Pulse Resp BP Pulse Ox 98.3 F 84 18 153/83 100 10/05/17 11:02 10/05/17 11:02 10/05/17 11:02 10/05/17 11:02 10/05/17 11:02 - Physical Exam General Appearance: Yes: Nourished, Appropriately Dressed HEENT: positive: EOMI, MILADY, Normal ENT Inspection, TMs Normal, Pharynx Normal Neck: positive: Supple Respiratory/Chest: positive: Lungs Clear, Normal Breath Sounds. negative: Crackles, Rales, Rhonchi, Stridor, Wheezing Cardiovascular: positive: Regular Rhythm, Regular Rate Gastrointestinal/Abdominal: positive: Soft Musculoskeletal: positive: Normal Inspection Extremity: positive: Normal Capillary Refill, Normal Range of Motion Integumentary: positive: Normal Color, Dry, Warm Neurologic: positive: automation qa tester II-XII NML intact, Fully Oriented, Alert, Normal Mood/ Affect, Normal Response, Motor Strength 5/5 ED Treatment Course - RADIOLOGY Radiology Studies Ordered: Category Date Time Status CHEST PA & LAT [RAD] Stat Radiology 10/05/17 11:56 Ordered KNEE 3 POS-LEFT [RAD] Stat Radiology 10/05/17 11:56 Ordered Medical Decision Making - Medical Decision Making 10/05/17 13:15 cc: knee pain left knee for 2 weeks , tender to the medial aspect of the knee no swelling or deformity FROM c/o cough for 2 weeks no fever no recent travel no sick contacts will get knee and CXR pt is followed at [facility] PMD, has DM and HTN well controlled pt denies any chest pain or shortness of breath *DC/Admit/Observation/Transfer Diagnosis at time of Disposition: Cough Contusion, knee Qualifiers: Encounter type: initial encounter Laterality: left Qualified Code(s): S80.02XA - Contusion of left knee, initial encounter - Discharge Dispostion Disposition: HOME Condition at time of disposition: Good - Prescriptions Prescriptions: Benzonatate [Tessalon Pearls -] 100 mg PO TID PRN #21 capsule PRN Reason: Cough - Referrals - Patient Instructions Additional Instructions: follow with the orthopedist Dr. Goddard for follow up regarding the knee pain, the xray was normal today follow with your PMD regarding the cough please drink pleanty of water and take tessalon as prescribed for cough Return to ER for any fever, chest pain , shortness of breath or any other worsening symptoms - Post Discharge Activity
== END 2017-10-05 13:23 | disposition home or self-care (01) ==
LOC: JERFT 10:59
DX: R05 Cough (principal); S80.02XA Contusion of left knee, initial encounter; W01.0XXA Fall on same level from slipping, tripping and stumbling without subsequent striking against object, initial encounter; Y93.89 Activity, other specified; Y92.89 Other specified places as the place of occurrence of the external cause; Y99.8 Other external cause status
CPT/HCPCS: 71046-TC; 73562-TC-LT; 99281-25

== ENCOUNTER 2018-09-23 16:40 | Inpatient (IN) | payer MEDICARE, OTHER ==
--- NOTE | 2018-09-23 17:45 | PDOC ---
Attending Attestation - HPI HPI: 09/23/18 19:56 The patient is a 67 year old female with a past medical history of IDDM who presents to the ED today complaining of decrease in PO intake and epigastric discomfort. The patient reports not wanting to eat for the past 4 days. Patient reports epigastric discomfort that she describes as emptiness. Patient has not been compliant with her medications. Denies fever or chills. Denies nausea or vomiting. Denies any other complications. <Brandon Woods - Last Filed: 09/23/18 19:56> - Resident Resident Name: Manuela Obrien - ED Attending Attestation I have performed the following: I have examined & evaluated the patient, The case was reviewed & discussed with the resident, I agree w/resident's findings & plan, Exceptions are as noted - HPI HPI: 09/23/18 17:52 67 yo female,Creole speaking,accompanied by son who speaks Gambian has c/o chest discomfort abd epigastric "hollowness" She is IDDM but has not used any medications for some time because of a insurance lapse - Physicial Exam PE: 09/23/18 21:43 Well-nourished, well-developed 62 well-nourished well-developed 67-year-old female in no acute distress. Complaining of frequent urination. Head normocephalic/atraumatic. Eyes pupils equal, reactive to light and accommodation, extraocular muscles intact. Neck no JVD, supple Lungs clear to auscultation. CVS regular rate and rhythm S1, S2 Abdomen nontender, + bowel sounds. Extremities no pitting edema. Skin warm and dry. Neuro alert and oriented 3, ambulatory, moving all extremities, no gross focal neural deficits - Medical Decision Making 09/23/18 19:39 pt found to be in DKA 09/23/18 21:41 Patient given IV fluids, insulin Patient appears well. She has no shortness of breath, does not complain of nausea or vomiting. Her chief complaint of polydipsia, polyuria Is not in any respiratory distress. She has no abdominal pain and no chest pain. The son said that she had not been taking her insulin for at least a week. However, she may have been without it for quite some time She has a prior admission for DKA in 2017 09/23/18 21:48 pH=7.34 09/23/18 23:17 <Gi Gross - Last Filed: 09/23/18 23:17> Attestations - Attestations 09/23/18 19:57 Documentation prepared by Brandon Woods, acting as medical superintendent for Gi Gross MD <Brandon Woods - Last Filed: 09/23/18 19:56>
[2018-09-23] MEDS ORDERED: SODIUM CHLORIDE 0.9% 500 ML INFUS.BAG IV ONE (17:50)
--- NOTE | 2018-09-23 17:52 | PDOC ---
History of Present Illness - General Chief Complaint: Lightheaded Stated Complaint: PAIN IN CHEST,DIABETIC, WEAK Time Seen by Provider: 09/23/18 17:26 - History of Present Illness Initial Comments: Dedra Palma is a Creole-speaking 67yo woman with a PMH of IDDM, previous admission for DKA (11/2016) who presents with anorexia, lightheadedness, polyuria , polydipsia, and a sensation of epigastric "emptiness." Ms Palma speaks Creole only, and her adult son is present at bedside to translate. Per Ms Palma, she has not felt like eating for 4 days. She denies any nausea, vomiting, diarrhea, constipation, heartburn or abdominal pain. She says that when she tries to eat, she "just does not want to." She does note a feeling of epigastric discomfort that she describes as "emptiness." She specifies that it is not pain. It does not radiate, but she is unable to specify the timing or aggravating/alleviating factors. Ms Palma states that she otherwise feels well. Her son notes that she has been out of her home medications for at least a week. He says that her medicare lapsed, and he was unable to get it renewed until recently. He thinks that his mother last saw her doctor at some time in summer, but he is not sure. Neither the son nor patient know her medical conditions or medications. He says that she takes a pill "for her chest" and another for diabetes. They both deny that Ms Palma uses insulin; the son states she used to have shots, but her doctor told her to stop. They deny that she was told to check her glucose at home. Past History - Past Medical History Allergies/Adverse Reactions: Allergies Allergy/AdvReac Type Severity Reaction Status Date / Time No Known Allergies Allergy Verified 09/23/18 16:47 Home Medications: Ambulatory Orders Unobtainable 09/23/18 Anemia: No Asthma: No Cancer: No Cardiac Disorders: Yes CVA: No COPD: No CHF: No DVT: No Dementia: No Diabetes: Yes GI Disorders: No Disorders: No HTN: Yes Hypercholesterolemia: No Liver Disease: No Seizures: No Thyroid Disease: No - Surgical History Abdominal Surgery: No Appendectomy: No Cardiac Surgery: No Cholecystectomy: No Gastric Stapling: No GI Surgery: No Lung Surgery: No Neurologic Surgery: No Orthopedic Surgery: No - Immunization History Immunization Up to Date: No - Suicide/Smoking/Psychosocial Hx Smoking History: Never smoked Have you smoked in the past 12 months: No Hx Alcohol Use: No Drug/Substance Use Hx: No Substance Use Type: None Review of Systems - Review of Systems Comments:: General: No fevers, no chills, +anorexia HEENT: No changes in vision, no changes in hearing, no congestion, no sore throat CV: +sternal discomfort (emptiness). No palpitations, no LE edema Pulm: No SOB, no cough, no wheezing GI: No nausea or vomiting, no change in bowel habits, no melena : +frequency, No urgency, no dysuria Musc: No back pain, no joint swelling, no recent injury Skin: No rash, no lesions, no erythema Endo: +increased thirst, no heat/cold intolerance Heme: No unusual bruising or bleeding, no swollen glands Neuro: No syncope, no numbness/tingling, no focal weakness Vasc: No claudication Psych: No recent change in mood, no SI or HI *Physical Exam - Vital Signs Last Vital Signs Temp Pulse Resp BP Pulse Ox 97 F L 105 H 18 114/62 98 09/23/18 16:44 09/23/18 16:44 09/23/18 16:44 09/23/18 16:44 09/23/18 16:44 - Physical Exam Comments: General: Comfortable, no acute distress HEENT: PERRL, EOMI, MMM, voice normal, normal neck ROM, no LAD Cards: RRR, no murmur appreciated Pulm: Comfortable on room air, clear to auscultation bilaterally Abd: Soft, nontender, nondistended : No CVA tenderness Ext: Atraumatic. No LE edema. ROM intact. Strength 5/5 and equal bilaterally Vasc: Extremities WWP. Skin: Normal color, no rashes or lesions Neuro: A&Ox3, CN grossly intact, normal speech, motor/sensory grossly intact and symmetric Psych: Mood appropriate to situation Moderate Sedation - Procedure Monitoring Vital Signs: Procedure Monitoring Vital Signs Temperature 97 F L 09/23/18 16:44 Pulse Rate 105 H 09/23/18 16:44 Respiratory Rate 18 09/23/18 16:44 Blood Pressure 114/62 09/23/18 16:44 O2 Sat by Pulse Oximetry (%) 98 09/23/18 16:44 ED Treatment Course - LABORATORY CBC & Chemistry Diagram: 09/23/18 18:20 09/23/18 18:20 - RADIOLOGY Radiology Studies Ordered: Category Date Time Status CHEST X-RAY PORTABLE* [RAD] Stat Radiology 09/23/18 17:50 Ordered Medical Decision Making - Medical Decision Making 09/23/18 17:54 Dedra Palma is a Creole-speaking 67yo woman with a PMH of IDDM, previous admission for DKA (11/2016), previous note of non-compliance who presents with anorexia, lightheadedness, polyuria, polydipsia, and a sensation of epigastric "emptiness." - Polyuria, polydipsia likely due to hyperglycemia. Per son, pt has not taken medications for at least one week. Per patient and son, she does not take insulin (no shots). Unclear what medications she was taking at home. - Given excessive water intake (at least one gallon in day, 4 bottles overnight) , may have electrolyte abnormalities - Epigastric "emptiness" could be secondary to anorexia, but with age and h/o DM need to r/o cardiac causes - CXR to evaluate for pulmonary or chest wall causes of sternal discomfort 09/23/18 19:13 - CBC unremarkable. UA with 3+ glucose, 2+ ketones. - Chemistry pending - Pt endorsed to Dr Parks for remainder of ED management. Discussed with Dr Gross. Manuela Obrien PGY1 *DC/Admit/Observation/Transfer Diagnosis at time of Disposition: Lightheaded, Polydipsia - Referrals - Patient Instructions - Post Discharge Activity
[2018-09-23 18:20] LABS: URINE APPEARANCE CLEAR; URINE BILIRUBIN NEGATIVE (<2.0 mg/dL); URINE COLOR STRAW; URINE GLUCOSE (UA) 3+ (NEGATIVE); URINE KETONE 2+ (NEGATIVE); URINE LEUK ESTERASE NEGATIVE (NEGATIVE); URINE NITRITE NEGATIVE (NEGATIVE); URINE PROTEIN NEGATIVE (NEGATIVE); URINE UROBILINOGEN NEGATIVE mg/dL (0.2-1.0)
[2018-09-23 18:41] LABS: BASO % 0.8 % (0-2.0); EOS % 0.6 % (0-4.5); HEMATOCRIT 42.7 % (32.4-45.2); HEMOGLOBIN 14.1 GM/dL (10.7-15.3); LYMPH % 48.8 % (8-40); MCH 23.1 pg (25.7-33.7); MCHC 32.9 g/dl (32.0-36.0); MEAN CELL VOLUME 70.1 fl (80-96); MEAN PLT VOLUME 9.3 fl (7.5-11.1); MONO % 5.9 % (3.8-10.2); NEUT % 43.9 % (42.8-82.8); PLATELET COUNT 311 K/MM3 (134-434); WHITE BLOOD COUNT 7.4 K/mm3 (4.0-10.0)
--- NOTE | 2018-09-23 19:27 | PDOC ---
*Physical Exam - Vital Signs Last Vital Signs Temp Pulse Resp BP Pulse Ox 97 F L 105 H 18 114/62 98 09/23/18 16:44 09/23/18 16:44 09/23/18 16:44 09/23/18 16:44 09/23/18 16:44 ED Treatment Course - LABORATORY CBC & Chemistry Diagram: 09/23/18 18:20 09/23/18 18:20 - ADDITIONAL ORDERS Additional order review: Laboratory Results 09/23/18 18:10 Urine Color Straw Urine Appearance Clear Urine pH 5.0 Ur Specific [place] 1.026 Urine Protein Negative Urine Glucose (UA) 3+ H Urine Ketones 2+ H Urine Blood Negative Urine Nitrite Negative Urine Bilirubin Negative Urine Urobilinogen Negative Ur Leukocyte Esterase Negative 09/23/18 18:20 RBC 6.10 H MCV 70.1 L MCHC 32.9 RDW 14.0 MPV 9.3 D Neutrophils % 43.9 D Lymphocytes % 48.8 H D Monocytes % 5.9 Eosinophils % 0.6 Basophils % 0.8 - Medications Given in the ED: ED Medications Discontinued Medications Generic Name Dose Route Start Last Admin Trade Name Freq PRN Reason Stop Dose Admin Sodium Chloride 1,000 ml 09/23/18 17:50 09/23/18 18:30 Normal Saline - IV 09/23/18 17:51 1,000 ml ONCE ONE Administration Medical Decision Making - Medical Decision Making Pt was signed out to me by resident Dr. Obrien, who explained the presentation, ED course, any pending results, and needed interventions. Pending results include CMP. Pt is currently stable and is lying comfortably. Pt is likely to be admitted, due to poor BG control and minimal PCP follow-up. 09/23/18 19:25 CBC generally WNL UA: 3+ gluc, 2+ ketones, likely DKA and dehydration. 09/23/18 19:26 CMP: hyponatremic, hypochlremic, glucose 450. Acetone trace +1 Trop <.02 Ordered repeat BGM, and additional 1 L IV NS (2 L total); will reassess BGM for insulin dose. 09/23/18 19:41 Repeat BGM 372 after 1 L NS. Providing second 1 L IV NS. VBG being sent to lab (determine pH) Providing 8 units SQ regular insulin. Will re-check BG after administration. Pt will be admitted, determining ICU vs floor status after glucose administration, as pt was very responsive to fluids. 09/23/18 20:54 VBG: pH 7.34 (CO2 low, likely hyperventilating). 09/23/18 21:36 Pt received insulin and second liter IV NS, will re-check BGM then page for admission. 09/23/18 21:37 Repeat BGM 311, steadily decreasing. Received 2 L IV NS and 8 SQ insulin. Paging hospitalist team for admission. 09/23/18 23:30 Hospitalist team accepted pt for admission. Pt comfortable and resting. Has been tolerating PO fluid intake. 09/23/18 23:41 *DC/Admit/Observation/Transfer Diagnosis at time of Disposition: Poor compliance with medication Diabetes mellitus Qualifiers: Diabetes mellitus type: type 2 Diabetes mellitus moth exterminator insulin use: unspecified moth exterminator insulin use status Diabetes mellitus complication status: with ketoacidosis Diabetes mellitus complication detail: without coma Qualified Code(s): E11.10 - Type 2 diabetes mellitus with ketoacidosis without coma DKA (diabetic ketoacidosis) Qualifiers: Diabetes mellitus type: type 2 Diabetes mellitus complication detail: without coma Qualified Code(s): E11.10 - Type 2 diabetes mellitus with ketoacidosis without coma HTN (hypertension) Qualifiers: Hypertension type: unspecified Qualified Code(s): I10 - Essential (primary) hypertension - Discharge Dispostion Condition at time of disposition: Stable Decision to Admit order: Yes - Referrals - Patient Instructions - Post Discharge Activity
[2018-09-23 19:28] LABS: ALBUMIN 4.3 g/dl (3.4-5.0); ALK PHOS 82 U/L (45-117); ANION GAP 17 MMOL/L (8-16); BILIRUBIN,TOTAL 0.8 mg/dL (0.2-1); BLOOD UREA NITROGEN 15 mg/dL (7-18); CHLORIDE 91 mmol/L (98-107); CO2 23 mmol/L (21-32); MAGNESIUM 2.3 mg/dL (1.8-2.4); PHOSPHOROUS 4.5 mg/dL (2.5-4.9); POTASSIUM 4.9 mmol/L (3.5-5.1); SGOT/AST 26 U/L (15-37); SGPT/ALT 33 U/L (13-61); SODIUM 130 mmol/L (136-145); TOT PROT 8.2 g/dl (6.4-8.2)
[2018-09-23 19:29] LABS: GLUCOSE,RANDOM 453 mg/dL (74-106)
[2018-09-23] MEDS ORDERED: SODIUM CHLORIDE 1,000 ML IV STA (19:41)
[2018-09-23] MEDS ORDERED: INSULIN REGULAR HUMAN 100 UNITS/ML *VIAL SQ ONE (20:53)
[2018-09-23] MEDS ORDERED: INSULIN REGULAR HUMAN 100 UNITS/ML *VIAL ONE (20:59)
[2018-09-23 21:16] LABS: VENOUS PC02 37.5 mmHg (38-52); VENOUS PH 7.34 (7.32-7.42); VENOUS PO2 46.4 mmHg (28-48)
--- NOTE | 2018-09-24 00:42 | PN ---
Teaching Attending Note Name of Resident: June Kelly ATTENDING PHYSICIAN STATEMENT I saw and evaluated the patient. I reviewed the resident's note and discussed the case with the resident. I agree with the resident's findings and plan as documented. SUBJECTIVE: This is a 67 year old woman with a history of type 2 DM who comes to the ED complaining of epigastric pain. She has had a poor appetite for the last 4 days. She also reports an increase in urination and an increase in thirst. She denies fever, chills, nausea, vomiting, diarrhea, melena, rectal bleeding, weight loss, dysuria, hematuria. OBJECTIVE: Vital Signs Period Temp Pulse Resp BP Sys/Zeng Pulse Ox Last 24 Hr 97 F 105 18 114/62 98 HEART: S1S2, tachycardic LUNGS: Clear ABDOMEN: Soft, non-tender, non-distended, normal BS EXTREMITIES: No edema Laboratory Tests 09/23/18 09/23/18 09/23/18 18:10 18:20 18:20 WBC 7.4 RBC 6.10 H Hgb 14.1 Hct 42.7 D MCV 70.1 L MCH 23.1 L MCHC 32.9 RDW 14.0 Plt Count 311 MPV 9.3 D Absolute Neuts (auto) 3.3 Neutrophils % 43.9 D Lymphocytes % 48.8 H D Monocytes % 5.9 Eosinophils % 0.6 Basophils % 0.8 Nucleated RBC % 0 VBG pH POC VBG pCO2 POC VBG pO2 Mixed VBG HCO3 Sodium 130 L Potassium 4.9 Chloride 91 L Carbon Dioxide 23 Anion Gap 17 H BUN 15 Creatinine 1.0 Creat Clearance w eGFR 55.30 POC Glucometer Random Glucose 453 H* Calcium 10.0 Phosphorus 4.5 Magnesium 2.3 Total Bilirubin 0.8 AST 26 ALT 33 Alkaline Phosphatase 82 Troponin I < 0.02 Total Protein 8.2 Albumin 4.3 Urine Color Straw Urine Appearance Clear Urine pH 5.0 Ur Specific [place] 1.026 Urine Protein Negative Urine Glucose (UA) 3+ H Urine Ketones 2+ H Urine Blood Negative Urine Nitrite Negative Urine Bilirubin Negative Urine Urobilinogen Negative Ur Leukocyte Esterase Negative Acetone, Qual 09/23/18 09/23/18 09/23/18 18:20 19:56 21:05 WBC RBC Hgb Hct MCV MCH MCHC RDW Plt Count MPV Absolute Neuts (auto) Neutrophils % Lymphocytes % Monocytes % Eosinophils % Basophils % Nucleated RBC % VBG pH 7.34 POC VBG pCO2 37.5 L POC VBG pO2 46.4 Mixed VBG HCO3 19.9 Sodium Potassium Chloride Carbon Dioxide Anion Gap BUN Creatinine Creat Clearance w eGFR POC Glucometer [phone] Random Glucose Calcium Phosphorus Magnesium Total Bilirubin AST ALT Alkaline Phosphatase Troponin I Total Protein Albumin Urine Color Urine Appearance Urine pH Ur Specific [place] Urine Protein Urine Glucose (UA) Urine Ketones Urine Blood Urine Nitrite Urine Bilirubin Urine Urobilinogen Ur Leukocyte Esterase Acetone, Qual Positive small 1+ H 09/23/18 23:15 WBC RBC Hgb Hct MCV MCH MCHC RDW Plt Count MPV Absolute Neuts (auto) Neutrophils % Lymphocytes % Monocytes % Eosinophils % Basophils % Nucleated RBC % VBG pH POC VBG pCO2 POC VBG pO2 Mixed VBG HCO3 Sodium Potassium Chloride Carbon Dioxide Anion Gap BUN Creatinine Creat Clearance w eGFR POC Glucometer [phone] Random Glucose Calcium Phosphorus Magnesium Total Bilirubin AST ALT Alkaline Phosphatase Troponin I Total Protein Albumin Urine Color Urine Appearance Urine pH Ur Specific [place] Urine Protein Urine Glucose (UA) Urine Ketones Urine Blood Urine Nitrite Urine Bilirubin Urine Urobilinogen Ur Leukocyte Esterase Acetone, Qual Home Medications Medication Instructions Recorded Unobtainable 09/23/18 ASSESSMENT AND PLAN: This is a 67 year old woman with a history of type 2 DM who comes to the ED complaining of epigastric pain, loss of appetite, increased urination, and increased thirst. 1. Uncontrolled type 2 DM - On presentation, glucose was 453 with AG 17, 1+ acetone, pH 7.34 - IV fluid - Monitor BMPs - Close monitoring of fingersticks with Novolog sliding scale - Check HbA1c 2. Pseudohyponatremia - Sodium corrects to 136
[2018-09-24] MEDS ORDERED: SODIUM CHLORIDE 1,000 ML IV SCH (00:45)
--- NOTE | 2018-09-24 00:47 | HP ---
CHIEF COMPLAINT: hyperglycemia PCP:unknown HISTORY OF PRESENT ILLNESS: 67 y/o creole-speaking female presents to the ED with worsening epigastric pain , decreased PO intake and elevated blood sugar to 453 on admission. Patient states that she has not been feeling right for a few fays that she has an empty feeling inside her and that she has discomfort in her epigastric region- she has not eaten much of anything in the past 4 days. She is a very poor historian and is not compliant with her medications- she has not taken any diabetes medications since june when she got back from [facility]- her medicare has lapsed and she has not been able to renew prescriptions. Her son has been paying out of pocket for meds however she does not recall the name of the medication and she denies ever being on insulin. She was hospitalized last november with DKA and was discharged on levemir and sliding scale. She denies any fevers,chills, or vomiting. ER course was notable for: (1) glucose on admission was 453 with a gap of 17 and 1+ acetones (2)given 8 units of insulin SQ and 2 liters of fluid- repeat BGM 311 (3) Recent Travel: was in [facility] a few months ago PAST MEDICAL HISTORY: DM PAST SURGICAL HISTORY: denies Social History: Smoking:denies Alcohol:denies Drugs: denies Family History:unknown Allergies No Known Allergies Allergy (Verified 09/23/18 16:47) HOME MEDICATIONS: Home Medications Medication Instructions Recorded Unobtainable 09/23/18 REVIEW OF SYSTEMS CONSTITUTIONAL: Present:loss of appetite Absent: fever, chills, diaphoresis, generalized weakness, malaise, weight change HEENT: Absent: rhinorrhea, nasal congestion, throat pain, throat swelling, difficulty swallowing, mouth swelling, ear pain, eye pain, visual changes CARDIOVASCULAR: Absent: chest pain, syncope, palpitations, irregular heart rate, lightheadedness , peripheral edema RESPIRATORY: Absent: cough, shortness of breath, dyspnea with exertion, orthopnea, wheezing, stridor, hemoptysis GASTROINTESTINAL: Present: epigastric discomfort Absent: abdominal pain, abdominal distension, nausea, vomiting, diarrhea, constipation, melena, hematochezia GENITOURINARY: Present: Polyuria Absent: dysuria, frequency, urgency, hesitancy, hematuria, flank pain, genital pain MUSCULOSKELETAL: Absent: myalgia, arthralgia, joint swelling, back pain, neck pain SKIN: Absent: rash, itching, pallor HEMATOLOGIC/IMMUNOLOGIC: Absent: easy bleeding, easy bruising, lymphadenopathy, frequent infections ENDOCRINE: Absent: unexplained weight gain, unexplained weight loss, heat intolerance, cold intolerance NEUROLOGIC: Present: dizziness, Absent: headache, focal weakness or paresthesias, unsteady gait, seizure, mental status changes, bladder or bowel incontinence PSYCHIATRIC: Absent: anxiety, depression, suicidal or homicidal ideation, hallucinations. PHYSICAL EXAMINATION Vital Signs - 24 hr 09/23/18 16:44 Temperature 97 F L Pulse Rate 105 H Respiratory 18 Rate Blood Pressure 114/62 O2 Sat by Pulse 98 Oximetry (%) GENERAL: Awake, alert, and fully oriented, in no acute distress. EYES: EOMI; PEERLA; no scleral icterus NECK: no JVD, no lymphadenopathy LUNGS: CTA B/L; no rales, rhonchi or wheezing HEART: Regular rate and rhythm, normal S1 and S2 without murmur, rub or gallop. ABDOMEN: Soft, nontender, not distended, normoactive bowel sounds, no guarding, no rebound, no masses. No hepatomegaly or splenomegaly. MUSCULOSKELETAL: Normal range of motion at all joints. No bony deformities or tenderness. No CVA tenderness. EXTREMITIES: warm; well-perfused no clubbing/cyanosis or edema. NEUROLOGICAL: Cranial nerves II-XII intact. Normal speech. Normal gait. PSYCHIATRIC: Cooperative. Good eye contact. Appropriate mood and affect. SKIN: Warm, dry, normal turgor, no rashes or lesions noted, normal capillary refill. Laboratory Results - last 24 hr 09/23/18 09/23/18 09/23/18 18:10 18:20 18:20 WBC 7.4 RBC 6.10 H Hgb 14.1 Hct 42.7 D MCV 70.1 L MCH 23.1 L MCHC 32.9 RDW 14.0 Plt Count 311 MPV 9.3 D Absolute Neuts (auto) 3.3 Neutrophils % 43.9 D Lymphocytes % 48.8 H D Monocytes % 5.9 Eosinophils % 0.6 Basophils % 0.8 Nucleated RBC % 0 VBG pH POC VBG pCO2 POC VBG pO2 Mixed VBG HCO3 Sodium 130 L Potassium 4.9 Chloride 91 L Carbon Dioxide 23 Anion Gap 17 H BUN 15 Creatinine 1.0 Creat Clearance w eGFR 55.30 POC Glucometer Random Glucose 453 H* Calcium 10.0 Phosphorus 4.5 Magnesium 2.3 Total Bilirubin 0.8 AST 26 ALT 33 Alkaline Phosphatase 82 Troponin I < 0.02 Total Protein 8.2 Albumin 4.3 Urine Color Straw Urine Appearance Clear Urine pH 5.0 Ur Specific [place] 1.026 Urine Protein Negative Urine Glucose (UA) 3+ H Urine Ketones 2+ H Urine Blood Negative Urine Nitrite Negative Urine Bilirubin Negative Urine Urobilinogen Negative Ur Leukocyte Esterase Negative Acetone, Qual 09/23/18 09/23/18 09/23/18 18:20 19:56 21:05 WBC RBC Hgb Hct MCV MCH MCHC RDW Plt Count MPV Absolute Neuts (auto) Neutrophils % Lymphocytes % Monocytes % Eosinophils % Basophils % Nucleated RBC % VBG pH 7.34 POC VBG pCO2 37.5 L POC VBG pO2 46.4 Mixed VBG HCO3 19.9 Sodium Potassium Chloride Carbon Dioxide Anion Gap BUN Creatinine Creat Clearance w eGFR POC Glucometer [phone] Random Glucose Calcium Phosphorus Magnesium Total Bilirubin AST ALT Alkaline Phosphatase Troponin I Total Protein Albumin Urine Color Urine Appearance Urine pH Ur Specific [place] Urine Protein Urine Glucose (UA) Urine Ketones Urine Blood Urine Nitrite Urine Bilirubin Urine Urobilinogen Ur Leukocyte Esterase Acetone, Qual Positive small 1+ H 09/23/18 23:15 WBC RBC Hgb Hct MCV MCH MCHC RDW Plt Count MPV Absolute Neuts (auto) Neutrophils % Lymphocytes % Monocytes % Eosinophils % Basophils % Nucleated RBC % VBG pH POC VBG pCO2 POC VBG pO2 Mixed VBG HCO3 Sodium Potassium Chloride Carbon Dioxide Anion Gap BUN Creatinine Creat Clearance w eGFR POC Glucometer [phone] Random Glucose Calcium Phosphorus Magnesium Total Bilirubin AST ALT Alkaline Phosphatase Troponin I Total Protein Albumin Urine Color Urine Appearance Urine pH Ur Specific [place] Urine Protein Urine Glucose (UA) Urine Ketones Urine Blood Urine Nitrite Urine Bilirubin Urine Urobilinogen Ur Leukocyte Esterase Acetone, Qual ASSESSMENT/PLAN: 67 y/o female with PMH of DM presents to the ED with a 4 day history of epigastric pain, decreased PO intake found to have an elevated blood glucose of 453 with a gap of 17. #Hyperglycemia -BGMS Q2H -repeat CMP stat; then again at 6am -ISS ACHS -NS@100mls/hr -diabetic education -monitor electrolytes F/E/N NS @100mls/hr monitor electrolytes Diabetic Diet Problem List - Problem (1) DKA (diabetic ketoacidosis) Code(s): E13.10 - OTH DIABETES MELLITUS WITH KETOACIDOSIS WITHOUT COMA Qualifiers: Diabetes mellitus type: type 2 Diabetes mellitus complication detail: without coma Qualified Code(s): E11.10 - Type 2 diabetes mellitus with ketoacidosis without coma (2) Diabetes mellitus Code(s): E11.9 - TYPE 2 DIABETES MELLITUS WITHOUT COMPLICATIONS Qualifiers: Diabetes mellitus type: type 2 Diabetes mellitus fpc insulin use: unspecified medical terminologist insulin use status Diabetes mellitus complication status : with ketoacidosis Diabetes mellitus complication detail: without coma Qualified Code(s): E11.10 - Type 2 diabetes mellitus with ketoacidosis without coma Visit type - Emergency Visit Emergency Visit: Yes ED Registration Date: 09/23/18 Care time: The patient presented to the Emergency Department on the above date and was hospitalized for further evaluation of their emergent condition. - New Patient This patient is new to me today: Yes Date on this admission: 09/24/18 - Critical Care Critical Care patient: No
[2018-09-24 01:46] LABS: ALBUMIN 3.3 g/dl (3.4-5.0); ALK PHOS 60 U/L (45-117); ANION GAP 11 MMOL/L (8-16); BILIRUBIN,TOTAL 0.7 mg/dL (0.2-1); BLOOD UREA NITROGEN 10 mg/dL (7-18); CALCIUM 8.2 mg/dL (8.5-10.1); CHLORIDE 100 mmol/L (98-107); CO2 24 mmol/L (21-32); CREATININE 0.7 mg/dL (0.55-1.3); GLUCOSE,RANDOM 277 mg/dL (74-106); POTASSIUM 4.4 mmol/L (3.5-5.1); SGOT/AST 20 U/L (15-37); SGPT/ALT 22 U/L (13-61); SODIUM 135 mmol/L (136-145); TOT PROT 6.4 g/dl (6.4-8.2)
[2018-09-24] MEDS ORDERED: INSULIN (NOVOLOG) ASPART 100 UNITS/ML 10ML VIAL SQ ONE (03:14)
[2018-09-24] MEDS ORDERED: INSULIN (NOVOLOG) ASPART 100 UNITS/ML 10ML VIAL ONE ×2 (04:09→11:40)
[2018-09-24] MEDS ORDERED: HEPARIN NA (PORCINE) 5,000 UNITS/ML 1ML VIAL ONE (06:05)
[2018-09-24 06:07] LABS: HEMATOCRIT 34.9 % (32.4-45.2); HEMOGLOBIN 11.5 GM/dL (10.7-15.3); MCH 23.1 pg (25.7-33.7); MCHC 32.9 g/dl (32.0-36.0); MEAN CELL VOLUME 70.3 fl (80-96); PLATELET COUNT 249 K/MM3 (134-434); RBC 4.96 M/mm3 (3.60-5.2); RDW 13.4 % (11.6-15.6); WHITE BLOOD COUNT 4.9 K/mm3 (4.0-10.0)
[2018-09-24] MEDS: HEPARIN NA (PORCINE) 5,000 UNITS/ML 1ML VIAL SQ SCH ×2 (06:07→13:36)
[2018-09-24 06:39] LABS: ALBUMIN 3.2 g/dl (3.4-5.0); ALK PHOS 56 U/L (45-117); ANION GAP 9 MMOL/L (8-16); BILIRUBIN,TOTAL 0.6 mg/dL (0.2-1); BLOOD UREA NITROGEN 9 mg/dL (7-18); CHLORIDE 102 mmol/L (98-107); CO2 25 mmol/L (21-32); CREATININE 0.6 mg/dL (0.55-1.3); GLUCOSE,RANDOM 231 mg/dL (74-106); MAGNESIUM 1.9 mg/dL (1.8-2.4); PHOSPHOROUS 2.7 mg/dL (2.5-4.9); POTASSIUM 4.2 mmol/L (3.5-5.1); SGOT/AST 18 U/L (15-37); SGPT/ALT 21 U/L (13-61); SODIUM 137 mmol/L (136-145)
[2018-09-24 06:42] LABS: CHOLESTEROL 169 mg/dL (50-200); HDL CHOLESTEROL 27 mg/dL (40-60); TRIGLYCERIDES 194 mg/dL (0-150)
[2018-09-24] MEDS: INSULIN SLIDING SCALE (NOVOLOG) 1 VIAL SQ SCH ×3 (08:29→16:25)
[2018-09-24] MEDS ORDERED: INSULIN (LEVEMIR) 100 UNITS/ML UNITS SQ SCH (10:00)
[2018-09-24] MEDS ORDERED: INSULIN (LEVEMIR) 100 UNITS/ML UNITS SQ ONE (10:28)
[2018-09-24 11:33] VITALS: PULSE 72; BMI 30.7
--- NOTE | 2018-09-24 12:09 | EKG ---
Test Reason : Blood Pressure : / mmHG Vent. Rate : 087 BPM Atrial Rate : 087 BPM P-R Int : 164 ms QRS Dur : 068 ms QT Int : 386 ms P-R-T Axes : 006 005 034 degrees QTc Int : 464 ms NORMAL SINUS RHYTHM NORMAL ECG WHEN COMPARED WITH ECG OF 22-JAN-2017 10:51, PREMATURE VENTRICULAR COMPLEXES ARE NO LONGER PRESENT Confirmed by KERA FINCH MD ([id number]) on 09/24/2018 12:08:47 PM Referred By: Confirmed By:KERA FINCH MD
--- NOTE | 2018-09-24 13:52 | DS ---
Physical Exam: SUBJECTIVE: Pt seen with aid of Creole-speaking machine hoop maker helper ([id number]). Pt reports feeling better without any complaints. Pt states she was not taking her insulin due to insurance lapsing. Pt wishes for us to speak to son. OBJECTIVE: Vital Signs Period Temp Pulse Resp BP Sys/Zeng Pulse Ox Last 24 Hr 97 F-97.8 F 72-105 15-18 114-130/57-80 98-98 PHYSICAL EXAM GENERAL:NAD, awake, alert, and fully oriented, laying in bed HEENT: NC/AT, EOMI, [place], sclera anicteric, MMM LUNGS: CTA bilaterally, no wheezes, no crackles, no accessory muscle use. HEART: RRR, S1, S2 without murmur ABDOMEN: Soft, NT/ND, normoactive bowel sounds, no guarding, no organomegaly EXTREMITIES: 2+ DP pulses, warm, well-perfused, no edema. NEUROLOGICAL: Nonfocal, moving all four extremities with strength 5/5. Normal speech, gait not observed. PSYCH: Normal mood, normal affect. SKIN: Warm, dry, no rashes or lesions noted. LABS Laboratory Results - last 24 hr 09/23/18 09/23/18 09/23/18 18:10 18:20 18:20 WBC 7.4 RBC 6.10 H Hgb 14.1 Hct 42.7 D MCV 70.1 L MCH 23.1 L MCHC 32.9 RDW 14.0 Plt Count 311 MPV 9.3 D Absolute Neuts (auto) 3.3 Neutrophils % 43.9 D Lymphocytes % 48.8 H D Monocytes % 5.9 Eosinophils % 0.6 Basophils % 0.8 Nucleated RBC % 0 VBG pH POC VBG pCO2 POC VBG pO2 Mixed VBG HCO3 Sodium 130 L Potassium 4.9 Chloride 91 L Carbon Dioxide 23 Anion Gap 17 H BUN 15 Creatinine 1.0 Creat Clearance w eGFR 55.30 POC Glucometer Random Glucose 453 H* Hemoglobin A1c % Calcium 10.0 Phosphorus 4.5 Magnesium 2.3 Total Bilirubin 0.8 AST 26 ALT 33 Alkaline Phosphatase 82 Troponin I < 0.02 Total Protein 8.2 Albumin 4.3 Triglycerides Cholesterol Total LDL Cholesterol HDL Cholesterol Urine Color Straw Urine Appearance Clear Urine pH 5.0 Ur Specific [place] 1.026 Urine Protein Negative Urine Glucose (UA) 3+ H Urine Ketones 2+ H Urine Blood Negative Urine Nitrite Negative Urine Bilirubin Negative Urine Urobilinogen Negative Ur Leukocyte Esterase Negative Acetone, Qual 09/23/18 09/23/18 09/23/18 18:20 18:25 19:56 WBC RBC Hgb Hct MCV MCH MCHC RDW Plt Count MPV Absolute Neuts (auto) Neutrophils % Lymphocytes % Monocytes % Eosinophils % Basophils % Nucleated RBC % VBG pH POC VBG pCO2 POC VBG pO2 Mixed VBG HCO3 Sodium Potassium Chloride Carbon Dioxide Anion Gap BUN Creatinine Creat Clearance w eGFR POC Glucometer > [phone] Random Glucose Hemoglobin A1c % Calcium Phosphorus Magnesium Total Bilirubin AST ALT Alkaline Phosphatase Troponin I Total Protein Albumin Triglycerides Cholesterol Total LDL Cholesterol HDL Cholesterol Urine Color Urine Appearance Urine pH Ur Specific [place] Urine Protein Urine Glucose (UA) Urine Ketones Urine Blood Urine Nitrite Urine Bilirubin Urine Urobilinogen Ur Leukocyte Esterase Acetone, Qual Positive small 1+ H 09/23/18 09/23/18 09/24/18 21:05 23:15 01:18 WBC RBC Hgb Hct MCV MCH MCHC RDW Plt Count MPV Absolute Neuts (auto) Neutrophils % Lymphocytes % Monocytes % Eosinophils % Basophils % Nucleated RBC % VBG pH 7.34 POC VBG pCO2 37.5 L POC VBG pO2 46.4 Mixed VBG HCO3 19.9 Sodium 135 L Potassium 4.4 Chloride 100 Carbon Dioxide 24 Anion Gap 11 BUN 10 Creatinine 0.7 Creat Clearance w eGFR > 60 POC Glucometer [phone] Random Glucose 277 H Hemoglobin A1c % Calcium 8.2 L Phosphorus Magnesium Total Bilirubin 0.7 AST 20 ALT 22 Alkaline Phosphatase 60 Troponin I Total Protein 6.4 Albumin 3.3 L Triglycerides Cholesterol Total LDL Cholesterol HDL Cholesterol Urine Color Urine Appearance Urine pH Ur Specific [place] Urine Protein Urine Glucose (UA) Urine Ketones Urine Blood Urine Nitrite Urine Bilirubin Urine Urobilinogen Ur Leukocyte Esterase Acetone, Qual 09/24/18 09/24/18 09/24/18 03:08 05:50 05:50 WBC 4.9 RBC 4.96 Hgb 11.5 Hct 34.9 D MCV 70.3 L MCH 23.1 L MCHC 32.9 RDW 13.4 Plt Count 249 MPV 9.0 Absolute Neuts (auto) Neutrophils % Lymphocytes % Monocytes % Eosinophils % Basophils % Nucleated RBC % VBG pH POC VBG pCO2 POC VBG pO2 Mixed VBG HCO3 Sodium 137 Potassium 4.2 Chloride 102 Carbon Dioxide 25 Anion Gap 9 BUN 9 Creatinine 0.6 Creat Clearance w eGFR > 60 POC Glucometer [phone] Random Glucose 231 H Hemoglobin A1c % Calcium 8.0 L Phosphorus 2.7 Magnesium 1.9 Total Bilirubin 0.6 AST 18 ALT 21 Alkaline Phosphatase 56 Troponin I Total Protein 6.0 L Albumin 3.2 L Triglycerides Cholesterol Total LDL Cholesterol HDL Cholesterol Urine Color Urine Appearance Urine pH Ur Specific [place] Urine Protein Urine Glucose (UA) Urine Ketones Urine Blood Urine Nitrite Urine Bilirubin Urine Urobilinogen Ur Leukocyte Esterase Acetone, Qual 09/24/18 09/24/18 09/24/18 05:50 05:50 07:18 WBC RBC Hgb Hct MCV MCH MCHC RDW Plt Count MPV Absolute Neuts (auto) Neutrophils % Lymphocytes % Monocytes % Eosinophils % Basophils % Nucleated RBC % VBG pH POC VBG pCO2 POC VBG pO2 Mixed VBG HCO3 Sodium Potassium Chloride Carbon Dioxide Anion Gap BUN Creatinine Creat Clearance w eGFR POC Glucometer [phone] Random Glucose Hemoglobin A1c % 15.7 H Calcium Phosphorus Magnesium Total Bilirubin AST ALT Alkaline Phosphatase Troponin I Total Protein Albumin Triglycerides 194 H Cholesterol 169 Total LDL Cholesterol 95 HDL Cholesterol 27 L Urine Color Urine Appearance Urine pH Ur Specific [place] Urine Protein Urine Glucose (UA) Urine Ketones Urine Blood Urine Nitrite Urine Bilirubin Urine Urobilinogen Ur Leukocyte Esterase Acetone, Qual 09/24/18 09/24/18 10:24 11:37 WBC RBC Hgb Hct MCV MCH MCHC RDW Plt Count MPV Absolute Neuts (auto) Neutrophils % Lymphocytes % Monocytes % Eosinophils % Basophils % Nucleated RBC % VBG pH POC VBG pCO2 POC VBG pO2 Mixed VBG HCO3 Sodium Potassium Chloride Carbon Dioxide Anion Gap BUN Creatinine Creat Clearance w eGFR POC Glucometer [phone] Random Glucose Hemoglobin A1c % Calcium Phosphorus Magnesium Total Bilirubin AST ALT Alkaline Phosphatase Troponin I Total Protein Albumin Triglycerides Cholesterol Total LDL Cholesterol HDL Cholesterol Urine Color Urine Appearance Urine pH Ur Specific [place] Urine Protein Urine Glucose (UA) Urine Ketones Urine Blood Urine Nitrite Urine Bilirubin Urine Urobilinogen Ur Leukocyte Esterase Acetone, Qual HOSPITAL COURSE: Date of Admission:09/23/18 Date of Discharge: 09/24/18 Pt admitted on 09/23/18 due to hyperglycemia with elevated anion gap. Pt received 1LNS total with coverage of insulin sliding scale. Repeat BGMs showed decreasing POC glucose and Levemir 10U BID was started. Pt remained with 230's glucose, however anion gap closed to 7. Spoke with son who reported pt had insurance lapse, however she has been approved for new medicare card that should come in mail later in week or early next week. Spoke with pharmacist at [facility] pharmacy who stated that she will just need some personal information to confirm her approval and she should be able to receive her medications. Pt is currently being discharged in stable condition with Levemir 10U BID and Novolog sliding scale (dictated below). She is able to tolerate food and drink at this time. She should follow-up with her primary care provider within the next week and continue to log BGM in a journal so she can take to Dr. Mora. Minutes to complete discharge: 35 <Acosta Ivey - Last Filed: 09/24/18 14:00> Physical Exam: Attending Note Patient seen and examined by me. 67 year old female admitted with hyperglycemia - no DKA or HONC. She has uncontrolled DM 2 with A1C of 15.7 due to non- compliance with Insulin sec to insurance issues. Currently gained Medicare coverage - serum glucose improved with re-instatement of home prescribed insulin regimen. Medically stable for discharge on Levemir and Novolog as outlined above. Plan discussed with son who is in agreement. Patient discharged to care of her son. Agree with resident note and plan. <Evangelista Hawley - Last Filed: 09/24/18 17:47> Discharge Summary Reason For Visit: POOR COMPLIANCE,DIABETIC LETOACIDOSIS,DIABETES Current Active Problems DKA (diabetic ketoacidosis) (Acute) Diabetes mellitus (Acute) HTN (hypertension) (Acute) Poor compliance with medication (Acute) - Home Medications Comprehensive Discharge Medication List: Ambulatory Orders Insulin (Levemir) [Levemir Vial] 10 units SQ BID@0700,2200 #1 vial 09/24/18 Insulin Sliding Scale [Novolog Vial Sliding Scale -] See Protocol SQ ACHS #1 vial 09/24/18 <Acosta Ivey - Last Filed: 09/24/18 14:00> Current Active Problems DKA (diabetic ketoacidosis) (Acute) Diabetes mellitus (Acute) HTN (hypertension) (Acute) Poor compliance with medication (Acute) - Home Medications Comprehensive Discharge Medication List: Ambulatory Orders Alcohol Antiseptic Pads [Alcohol Prep Pads] 1 each TP ACHS #100 med..pad Insulin (Levemir) [Levemir Vial] 10 units SQ BID@0700,2200 #1 vial 09/24/18 Insulin Sliding Scale [Novolog Vial Sliding Scale -] See Protocol SQ ACHS #1 vial 09/24/18 Miscellaneous Medical Supply [Glucometer Device] 1 each PRIETO ASDIR #1 kit Miscellaneous Medical Supply [Glucometer Test Strips #100] 1 each PRIETO ASDIR #1 box 09/24/18 Pen Needle, Diabetic [Pen Needle] 1 each ACHS #100 dis.[email or web address] 09/24/18 <Evangelista Hawley - Last Filed: 09/24/18 17:47> Condition: Stable - Instructions Diet, Activity, Other Instructions: You were seen in the hospital due to having very high blood sugar. We gave you insulin and fluids which brought down your sugar. It will most likely need to be increased, however Dr. Mora can guide you on those doses MEDICATIONS: Please continue Levemir 10 units TWICE DAILY Please continue your Novolog insulin before meals as below. It is VERY important that once you receive this insulin you eat 100-150 DO NOT GIVE INSULIN 151-200 Inject 2 units of novolog 201-250 Inject 4 units of novolog 251-300 Inject 6 units of novolog 301-350 Inject 8 units of novolog 351-400 Inject 8 units of Novolog; repeat your finger-stick again in 10 minutes and if it does not go down then come to the ER *Both your Levemir and your Novolog insulins have been sent to [facility] Follow-ups: Please follow-up with Dr. Mora within 1 week so he can follow your glucose levels. Please keep a journal of your glucose measurements 3 times per day so you can bring to Dr. Mora Please remember to have a yearly eye exam and foot exam Referrals: Jonny Mora MD [Staff Physician] - Disposition: HOME This patient is new to me today: Yes Date on this admission: 09/24/18 Emergency Visit: Yes ED Registration Date: 09/23/18 Care time: The patient presented to the Emergency Department on the above date and was hospitalized for further evaluation of their emergent condition. Critical Care patient: No - Discharge Referral Referred to [facility] Yes Physician Referral: Jonny Amaya MD ([facility]) <Acosta Ivey Last Filed: 09/24/18 14:00>
[2018-09-24 14:13] VITALS: BP 115/67; TEMP 98
== END 2018-09-24 18:15 | disposition home or self-care (01) | DRG 420 ==
LOC: JER 16:40 → JERBED 23:36 → J7W 09-24 11:02
PROVIDERS: ADMIT Internal Medicine
DX: E11.10 Type 2 diabetes mellitus with ketoacidosis without coma (principal); I10 Essential (primary) hypertension; R63.0 Anorexia; Z68.30 Body mass index [BMI] 30.0-30.9, adult; R35.8 Other polyuria; R63.1 Polydipsia; R42 Dizziness and giddiness; E87.1 Hypo-osmolality and hyponatremia; E86.0 Dehydration; E87.8 Other disorders of electrolyte and fluid balance, not elsewhere classified; E11.65 Type 2 diabetes mellitus with hyperglycemia; Z79.4 Long term (current) use of insulin; Z91.14 Patient's other noncompliance with medication regimen
CPT/HCPCS: 36415; 71045-TC-FY; 80053; 80061; 81003; 82009; 82010; 82803; 82962; 83036; 83721; 83735; 84100; 84484; 85025; 85027; 93005; 93010; 99284-25; J1644; J7030